=== PATIENT | female | born 1950 | race Caucasian/White ===

== ENCOUNTER 2018-04-30 08:57 | Outpatient (CLI) | payer MEDICARE, BC, SELFPAY | END 2018-04-30 08:58 | DX: Z53.8 Procedure and treatment not carried out for other reasons (principal) | CPT/HCPCS: 36415; 80053; 80061; 83721 ==

== ENCOUNTER 2018-05-01 02:55 | Outpatient (CLI) | payer MEDICARE, BC, SELFPAY ==
[2018-05-01 11:27] LABS: ALT 23 U/L (12-78); AST 24 U/L (15-37); Albumin 3.8 g/dL (3.4-5.0); Alkaline Phosphatase 94 U/L (46-116); Anion Gap 5.2 mmol/L (3-11); BUN 18 mg/dL (7-18); Bilirubin, Total 0.5 mg/dL (0.2-1.0); CO2 28.8 mmol/L (21.0-32.0); CREATININE 1.12 mg/dL (0.55-1.02); Chloride 108 mmol/L (98-107); Cholesterol 270 mg/dL (50-200); Estimated GFR 48.23 (mL/min/1.73m2); Glucose 89 mg/dL (70-100); HDL Cholesterol 109 mg/dL (40-60); LDL CHOLESTEROL 151 mg/dL (<100); Potassium 4.4 mmol/L (3.5-5.1); Sodium 142 mmol/L (136-145); Total Protein 6.4 g/dL (6.4-8.2); Triglyceride 74 mg/dL (30-150)
== END 2018-05-01 02:56 ==
DX: E78.2 Mixed hyperlipidemia (principal); E78.5 Hyperlipidemia, unspecified
CPT/HCPCS: 36415; 80053; 80061; 83721

== ENCOUNTER 2019-10-03 01:14 | Outpatient (CLI) | payer MEDICARE, BC, SELFPAY ==
--- NOTE | 2019-10-03 16:38 | DI.MAMMO_ITS ---
EXAM: MAMMO SCREENING CLINICAL HISTORY: screening Z12.39 TECHNIQUE: Mammograms were interpreted according to the usual protocol including computer analysis w [employer] CAD system, tomosynthesis and C-view imaging. FINDINGS: The breasts are heterogeneously dense. No dominant mass or clumped microcalcification is identified in either breast. Current examination is compared with previous examinations including June 2017 and there has been no gross interval change in appearance in comparison with the previous studies. IMPRESSION: No specific evidence of malignancy at this time. Routine screening examinations are suggested at year ly intervals due to the family history of breast carcinoma. Category 1. Breast density, category C. BI-RADS Cat 1 - Negative. Breast Density - Category C - Heterogeneously dense.
== END 2019-10-03 01:34 ==
PROVIDERS: Visit Provider Nurse Practitioner
DX: Z12.31 Encounter for screening mammogram for malignant neoplasm of breast (principal); Z80.3 Family history of malignant neoplasm of breast
CPT/HCPCS: 77063; 77067

== ENCOUNTER 2020-02-08 23:05 | Emergency (ER) | payer MEDICARE, BC, SELFPAY ==
[2020-02-08] VITALS (7 sets, daily range): BP systolic 112–126; BP diastolic 67–79; PULSE 75–97; RESP 14–19; TEMP 36.6; O2SAT 95–98
--- NOTE | 2020-02-08 23:11 | ED.GENADUL_ITS ---
Discharge Plan Disposition Patient Disposition: HOME Condition: Stable Discharge Details Chief Complaint: Chest Pain Clinical Impression: Chest pain Primary Care Provider: Charis Gould ED Provider: Samuel Rene Home Meds and New Rx's Prescriptions: Continued calcium carb and citrate-vitD3 1 EACH tablet extended release 1 ea PO DAILY RF: 0 bupropion HCl [Wellbutrin XL] 300 mg tablet extended release 24 hr 300 mg PO DAILY Qty: 90 RF: 4 lamotrigine 100 mg tablet 100 mg PO DAILY Qty: 90 RF: 4 Discharge Instructions Instructions: Chest Pain (ED) Additional Instructions: follow up with your primary care provider this week and discuss having a stress test. you should also discuss the lung nodule seen on your cat scan as you should have additional imaging in the future for follow up return to the emergency department if you have worsening pain, difficulty breathing or feel more ill Medical Decision Making 69 yo female with hx of anxiety, denies smoking history and otherwise unremarkable medical history comes in with cc of intermittent chest pain for over a day. Denies radiation of pain, diaphoresis, or notice of increase in pain with exertion. She denies fevers, chills, abdominal pain. She has no leg swelling, no calf pain, no hypoxia or tachycardia sodoubt PE. Though no pain radiatin to the back concern for possible dissection, will obtain CTA of thorax.Her heart score is 3, will obtain troponin, ecg unremarkable. labs unrenmarkable and ct shows no acute findings, does have lung nodule which I informed her of and advised her to discuss this with pcp for future imaging. Given over 3 hours of pain do not feel additional troponin indicated. Advised to f/u with pcp this week for possible stress testing and return precautions given Differential Diagnosis Differential Diagnosis: nstemi, esophageal spasm, dissection Medical Records Medical records reviewed: Yes I reviewed the patient's medical records. Imaging Data Radiologic Study: Attestation: I personally reviewed and interpreted this imaging study as follows: Imaging: CT Scan Radiologist's impression: IMPRESSION: 1. No evidence of aortic aneurysm or dissection. 2. No focal pulmonary consolidation. 7 mm nodule in the left oblique fissure likely represents an intrafissural lymph node. Follow-up guidelines of follows: For patients at low risk (minimal or absent history of smoking and of other known risk factors), recommend CT at 6-12 months, then consider CT at 18-24 months. For patients at high risk (history of smoking or of other known risk factors), recommend CT at 6-12 months, then CT at 18-24 months. (Carol et al., Fleischner Society, 2017) Lab Data Lab results reviewed: Yes I reviewed the patient's lab results. ECG Data Attestation: I personally reviewed and interpreted this ECG (s) as follows: Prior ECG tracings: available for review Interpretation: sinus rhythm, rate of 89, pr 152, no acute st t wave ischemic findings HPI General Mode of arrival: ambulatory . Date/Time Provider Initiated Documentation: 02/08/20 23:09 . Limitations to Documentation: no limitations . Information obtained by: patient . History of Present Illness 69 year old F presents to the emergency department with the chief complaint of chest pain, described as moderate, Patient reports no radiation. Patient started experiencing this day(s) (1) and it has been intermittent. No relieving factors improve symptom(s), No exacerbating factors reported . Patient did receive the following treatments prior to arrival, none Related Data Home Medications Medication Instructions Recorded Confirmed calcium carb and citrate-vitD3 1 ea PO DAILY 12/25/15 02/08/20 bupropion HCl 300 mg 24 hr tablet, 300 mg PO DAILY #90 tab 05/01/19 02/08/20 extended release lamotrigine 100 mg tablet 100 mg PO DAILY #90 tab 05/01/19 02/08/20 Previous Rx's Medication Instructions Recorded bupropion HCl 300 mg 24 hr tablet, 300 mg PO DAILY #90 tab 05/01/19 extended release lamotrigine 100 mg tablet 100 mg PO DAILY #90 tab 05/01/19 Allergies Allergy/AdvReac Type Severity Reaction Status Date / Time venlafaxine HCl AdvReac Intermediate hallucinati Verified 07/24/19 17:07 [From Effexor] ons General Stated Complaint: Chest Pain VIOLETA: 2 Review of Systems All systems reviewed & are unremarkable except as noted in HPI and below Constitutional Constitutional: Denies chills, Denies fever(s) and Denies weakness ENT Ears, Nose, Mouth, and Throat: Denies change in voice Cardiovascular Cardiovascular: Denies dyspnea Respiratory Respiratory: Denies cough and Denies dyspnea Gastrointestinal Gastrointestinal: Denies abdominal pain, Denies nausea and Denies vomiting Musculoskeletal Musculoskeletal: Denies joint swelling Neurologic Neurologic: Denies weakness PFSH Medical History (Updated 02/09/20 @ 00:23 by Samuel Rene MD) Anxiety and depression (Acute) Encounter for pessary maintenance (Acute) Skin lesion of scalp (Acute) Uterine polyp (Acute) s/p D&C. Uterine prolapse (Acute) 04/2019 51 mm short stem Gellhorn placed 07/2019. [facility] [place] [facility] [facility] referral. Surgery declined fenestrated cube pessary placed. 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 Maternal Grandfather Heart disease Paternal Grandfather No problems noted. Maternal Grandmother Arthritis Paternal Grandmother No problems noted. Maternal Aunt Osteoporosis Arthritis Son Asthma Daughter No problems noted. Social History (Updated 07/25/19 @ 10:27 by Jason Degroot) Smoking/Tobacco Use Status: Former Tobacco Use Second Hand Exposure: Yes Alcohol Intake: current Alcohol Intake frequency: 0-2 drinks per day Alcohol type: wine Counseling given: No Drug use: Never Caregiver/Support person: No Household members: spouse and other Details: Raghavendra. . Housing: house Communication Needs: None Do you need help understanding health information?: Never current occupation: retired Pets and animals: No Sexually active: Yes (infrequently) Do you think of yourself as: straight/heterosexual Current gender identity: female What is your relationship status?: How often do you talk on the phone with friends or family?: once per week How often do you get together with friends or relatives?: decline to answer How often do you attend alevism or orthodox services?: 1-3 times per year Do you belong to any clubs or organized social groups?: yes Panel score (0-1 are the most socially isolated patients): 2 What type of physical activity do you participate in: other Details: kayaking. Duration: 45-60 minutes/day Frequency: 1-2 times per week Jodie/Episcopal: Caodaism Special jodie needs: No Seatbelt use: always Helmet use: Yes Helmet use: always Drive intox or ride w/intox snaker tractor driver: No Do you feel safe at home: Yes Do you feel safe in your relationship?: Yes Additional Social history: 2 children History History 2 Para Hx # Term Pregnancies 2 Multiple births Hx # Pregnancies Ectopic pregnancies AB induced Hx Number of Living Children AB spontaneous Exam Const General: no acute distress Orientation: alert HENMT Head: normal to inspection Ears: external ears normal General nose exam: external nose normal Mouth: moist mucous membranes Eyes General: appearance normal, both eyes and all related structures Neck Neck: normal visual inspection Resp Effort & Inspection: normal respiratory effort and able to speak in complete sentences Cardio Rate: regular rate Skin General skin exam: no rashes or lesions noted Neuro General: patient alert and patient oriented x3 Extrem General: normal to inspection Psych Mental Status: mental status grossly normal
[2020-02-08 23:27] LABS: Abs Immature Grans 0.02 k/cumm (0.0-0.09); Absolute Basophil Count 0.05 k/cumm (0.0-0.2); Absolute Eosinophil Count 0.15 k/cumm (0.0-0.7); Absolute Lymphocyte Count 2.49 k/cumm (1.2-3.4); Absolute Neutrophil Count 3.43 k/cumm (1.2-6.7); Basophils % 0.7; Eosinophils % 2.2; HCT 40.2 % (36.0-46.0); HGB 13.7 g/dL (12.0-15.5); Immature Grans % 0.3 %; Lymphocytes % 36.4; Mean Corp. HGB Concentration 34.1 g/dL (32.0-36.0); Mean Corpuscular Hemoglobin 30.4 pg (27.0-33.0); Mean Corpuscular Volume 89.1 fL (80-95); Mean Platelet Volume 9.3 fL (8.0-11.0); Monocytes % 10.2; Neutrophils % 50.2; Platelet Count 386 x1000/uL (130-400); RBC 4.51 m/cumm (4.00-5.20); RBC Distribution Width 12.4 % (11.7-14.6); White Blood Cell Count 6.84 k/cumm (4.4-10.8)
--- NOTE | 2020-02-08 23:41 | DI.CT_ITS ---
EXAM: CT THORAX CTA CLINICAL HISTORY: chest pain, ?dissection. TECHNIQUE: Imaging Protocol: Axial CT angiography was performed with multi-slice acquisition and mu lti-planar and/or 3D reconstructions. CONTRAST MATERIAL: Intravenous: Omnipaque 350 Contrast volume:61 mL COMPARISON: CT UPPER ABD WITH CONTRAST (P) from 12/30/2017 FINDINGS: Pulmonary Arteries: The examination was not tailored for evaluation of the pulmonary arteries. Tracheobronchial tree: Patent where visualized. Mediastinum and Stacey: No dominant adenopathy or fluid collection. Pulmonary parenchyma: No consolidation is present. There is a 0.7 cm nodule along the left major fis sure likely reflecting a lymph node. No architectural distortion. Linear atelectasis is seen in the lung bases. Pleura: No effusion or pneumothorax. Heart: The heart is not dilated. No coronary artery calcifications are seen. No pericardial effusion. Aorta: Thoracic aorta non-dilated. There is no evidence of a thoracic aortic dissection. Upper abdomen: The renal pelves appear stable and likely reflect bilateral extrarenal pelves. Bones: No acute abnormality. Soft tissues: Unremarkable. IMPRESSION: 1. No evidence of thoracic aortic aneurysm or dissection. 2. 0.7 cm nodule along the left major fissure likely reflecting an intrapulmonary lymph node. For lo w risk patients or high risk patients CT scan in 6-12 months should be considered for follow-up. RADIATION DOSE DELIVERED: 431.52mGy.cm Total DLP DATA REPOSITORY: All CT scans at this facility are submitted to the National Radiology Data Registry (NRDR) Dose Index Registry (DIR) with the [employer] (ACR). RADIATION OPTIMIZATION: All CT scans at this facility use at least one of these dose optimization te chniques: automated exposure control; mA and/or kV adjustment per patient size (includes targeted exa ms where dose is matched to clinical indication); or iterative reconstruction.
[2020-02-08 23:44] LABS: PTT Activated 23.9 sec (21.0-31.4); Prothrombin Time 10.1 sec (9.3-11.0)
[2020-02-08 23:48] LABS: ALT 27 U/L (14-59); AST 25 U/L (15-37); Albumin 4.3 g/dL (3.4-5.0); Alkaline Phosphatase 97 U/L (46-116); Anion Gap 8.8 mmol/L (3-11); BUN 16 mg/dL (7-18); Bilirubin, Total 0.6 mg/dL (0.2-1.0); CO2 29.2 mmol/L (21.0-32.0); CREATININE 1.42 mg/dL (0.55-1.02); Calcium 9.2 mg/dL (8.5-10.1); Chloride 102 mmol/L (98-107); Estimated GFR 36.47 (mL/min/1.73m2); Glucose 105 mg/dL (74-106); Lipase 166 U/L (73-393); NT-proBNP 67 pg/mL (<300); Potassium 3.8 mmol/L (3.5-5.1); Sodium 140 mmol/L (136-145); Total Protein 7.1 g/dL (6.4-8.2); Troponin I < 0.05 ng/mL (<0.06)
[2020-02-08] MEDS: Normal Saline Flush 10 ML SYR IVP (23:55)
[2020-02-08] MEDS: Omnipaque 350 MG/ML 100 ML BTL IJ (23:56)
[2020-02-08] MEDS: Normal Saline - Diluent 50 ML VIAL IV (23:56)
[2020-02-09] VITALS: BP 105/71; PULSE 75; PULSE 76; RESP 18
[2020-02-09 00:01] VITALS: PULSE 79; RESP 14
[2020-02-09 00:10] VITALS: PULSE 78; RESP 13; O2SAT 94
--- NOTE | 2020-02-09 00:14 | DI.VRAD_ITS ---
PROCEDURE INFORMATION: Exam: CT Angiography Chest With Contrast Exam date and time: 02/08/2020 11:21 PM Age: 69 years old Clinical indication: Chest pain; Type not specified TECHNIQUE: Imaging protocol: Computed tomographic angiography of the chest with intravenous contrast. 3D rendering: MIP and/or 3D reconstructed images were created by the technologist. Radiation optimization: All CT scans at this facility use at least one of these dose optimization techniques: automated exposure control; mA and/or kV adjustment per patient size (includes targeted exams where dose is matched to clinical indication); or iterative reconstruction. Contrast material: [id number]; Contrast volume: 61 ml; Contrast route: IV 18G RAC; COMPARISON: No relevant prior studies available. FINDINGS: Aorta: Unremarkable. No aortic aneurysm. No aortic dissection. Pulmonary arteries: The study is not tailored to evaluate the pulmonary arteries. Lungs: A 7 mm nodule is noted along the left oblique fissure, likely an intrafissural lymph node. Linear atelectasis is noted in the right middle lobe. Pleural space: Unremarkable. No pneumothorax. No pleural effusion. Heart: Unremarkable. No significant cardiomegaly. No pericardial effusion. Lymph nodes: Unremarkable. No enlarged lymph nodes. Kidneys and ureters: The partially visualized bilateral renal collecting systems appear prominent, which could be secondary to extrarenal pelvises. Bones/joints: Unremarkable. No acute fracture. Soft tissues: Unremarkable. IMPRESSION: 1. No evidence of aortic aneurysm or dissection. 2. No focal pulmonary consolidation. 7 mm nodule in the left oblique fissure likely represents an intrafissural lymph node. Follow-up guidelines of follows: For patients at low risk (minimal or absent history of smoking and of other known risk factors), recommend CT at 6-12 months, then consider CT at 18-24 months. For patients at high risk (history of smoking or of other known risk factors), recommend CT at 6-12 months, then CT at 18-24 months. (Carol et al., Fleischner Society, 2017) Dictated and Authenticated by: Devora Kruger MD. Ordering:MIL Baker MD
== END 2020-02-09 00:33 | disposition home or self-care (01) ==
PROVIDERS: Emergency Provider Emergency Medicine
DX: R07.89 Other chest pain (principal); R91.1 Solitary pulmonary nodule
CPT/HCPCS: 36415; 71275; 80053; 83690; 93005; 99285; 83880; 84484; 85025; 85610; 85730; 93010; 99284; J3490

== ENCOUNTER 2020-02-19 00:06 | Outpatient (CLI) | payer MEDICARE, BC, SELFPAY ==
--- NOTE | 2020-02-19 08:00 | ETT_ITS ---
APPROVED REPORT Exam: Exercise Treadmill Patient Location: Out-Patient Room/Bed: Stress Nurse: Liz Lange RN BMI: 23.51 Baseline Rhythm: Sinus Rhythm Indications: Patient reports having intermittent midsternal chest pain associated with ???cold sweats ??? for the past year. Patient presented to the ED on 02/08/2020 when her ???gripping??? midsternal kan st pain (03/14) was the worst she had experienced. Medical History Medical History: Anxiety, Depression. Cardiac Medications: No cardiac medications. Allergies: Venlafaxine. Cardiac Risk Factors: FHX of CAD Previous Cardiac Procedures: None Pretest Chest Pain Characteristics: None Exercise History: Physically active Physical Disabilities: Left Hip/Leg Lung Sounds: Clear to auscultation Heart Sounds: Regular Stress Test Details Test: Exercise stress testing was performed using a Raghavendra protocol. Rest Stress HR Resting HR Supine: 81 bpm Max Heart Rate (APMHR): 149 bpm Resting HR Standin bpm Target HR (85% APMHR): 126 bpm Max HR Achieved: 135 bpm % of APMHR: 90 HR response to stress: Normal HR response to stress BP Resting BP Supine: 110/60 mmHg Resting BP Standin/64 mmHg Max BP: 148/72 mmHg BP response to stress: Normal blood pressure response to stress. ECG Resting ECG: Sinus Bradycardia Stress ECG: Sinus Tachycardia ST Change: Normal Arrhythmia: None Recovery ECG: Sinus Rhythm Recovery ST Change: Normal Recovery Arrhythmia: None Clinical Reason for Termination: Left groin/hip pain Stress Symptoms: None reported per patient. Exercise duration: 7 min32 sec Highest Stage Reached: Stage 3: 3.4 mph at 14% grade. Exercise capacity: 9.40 METs Functional Capacity: Above average capacity Stress ECG Conclusion 1. She exercised for 7 minutes and 30 seconds (9 METS). Rate-pressure product was 16,000. 2. Patient no symptoms suggestive of ischemia. 3. There is no evidence of ischemia on the ECG portion of the exam at this level of stress. 4. The Vaughn Score ( 7) estimates an annual cardiovascular mortality of 0% and a five year survival of 95%. Using the Vaughn Score there is a low probability of any angiographic coronary disease. Stress Test Summary STAGE Time (mins) Speed (mph) Grade (%) HR BP SYMPTOMS METS Supine 81 110/60 Standing 94 110/64 1 3 1.7 10 105 118/70 4.6 2 6 2.5 12 120 124/80 7 1 min recovery 112 148/72 3 min recovery 77 116/64 6 min recovery 76 106/60 9 min recovery 73 108/64
== END 2020-02-19 00:26 ==
DX: R07.89 Other chest pain (principal); F41.8 Other specified anxiety disorders; Z82.49 Family history of ischemic heart disease and other diseases of the circulatory system
CPT/HCPCS: 93016; 93018; 93017

== ENCOUNTER 2020-04-16 14:17 | Emergency (ER) | payer MEDICARE, BC, SELFPAY ==
[2020-04-16] VITALS (37 sets, daily range): BP systolic 106–126; BP diastolic 61–102; PULSE 63–80; RESP 12–26; TEMP 36.4–36.8; O2SAT 85–99
--- NOTE | 2020-04-16 14:15 | RT.EKG_ITS ---
APPROVED REPORT Exam: Resting ECG Patient Location: E HR:78 bpm ECG Measurements Heart Rate 78 AXIS HI 157 P 54 QRSd 77 QRS 42 QT 378 T 64 QTc 430 Conclusion Sinus. Less than 1mm ST depression in V3-6, II, III. No acute ST elevation.
--- NOTE | 2020-04-16 14:32 | ED.GENADUL_ITS ---
Discharge Plan Disposition Patient Disposition: HOME Condition: Improving Discharge Details Chief Complaint: Chest Pain Clinical Impression: Chest wall pain, Stress Primary Care Provider: Charis Gould ED Provider: Lara Fox Home Meds and New Rx's Prescriptions: New lidocaine [Lidoderm] 5 % adhesive patch,medicated 1 patch TP DAILY PRN (Reason: pain) Qty: 15 RF: 0 Continued estradiol [Estrace] 0.01 % (0.1 mg/gram) cream 1 gm VG QWEEK RF: 0 calcium carb and citrate-vitD3 1 EACH tablet extended release 1 ea PO DAILY RF: 0 bupropion HCl [Wellbutrin XL] 300 mg tablet extended release 24 hr 300 mg PO DAILY Qty: 90 RF: 4 lamotrigine 100 mg tablet 100 mg PO DAILY Qty: 90 RF: 4 nitroglycerin 0.4 mg tablet, sublingual 0.4 mg SL ONCE PRNRF: 0 Discharge Instructions Instructions: Chest Wall Pain (ED) Additional Instructions: Drink plenty of fluids and get plenty of rest. Alternate tylenol and motrin as needed and directed for pain. Use Lidoderm patch as needed and directed. Take the Ativan as needed and directed for sleep. Follow-up with your primary care doctor in 1 week. Return to the emergency department with any worsening or new concerning symptoms. Discharge Data Discharge Date/Time-TO BE ENTERED AT DEPARTURE: 04/16/20 18:55 Discharge Physician: Lara Fox Medical Decision Making 3918 -- 69-year-old female with a history of anxiety and depression presents for 2 episodes of left-sided chest pain since this morning. Minimal 1/10 chest pain at this time. No other associated symptoms. She admits to significant stress and sleep deprivation. She is active at home. EKG notes a rate of 78, sinus with questionable less than [address] depression in V3 V4. No acute ST elevation. She has tenderness to palpation just lateral to the inferior aspect of the sternum. No evidence of cellulitis or trauma. Differential diagnosis includes anxiety, chest wall strain, ACS, pneumonia. History and presentation not consistent with PE or dissection. She had a negative exercise stress test on 02/19/2020. Will obtain a cardiac work-up, CT chest and place Lidoderm patch and IV Tylenol, fluids and reassess. 1630 --labs and imaging reviewed and unremarkable. Patient reassessed and she feels much better. She is agreeable to stay for a second troponin and EKG. 1814 --repeat troponin negative. Repeat EKG notes resolution of ST depression with no acute ST-T wave ischemic changes. Discussed with patient at length regarding her symptoms. As she had a negative stress test 2 months ago, 2 episodes of atypical type chest pain which is reproducible, do not feel that this is an acute cardiac etiology at this time and patient is agreeable. We will send home with a few tabs of Ativan to help with initiating sleep. Advised to follow up with the primary care doctor for re-evaluation. Usual and customary return precautions given prior to discharge. Medical Records Medical records reviewed: Yes I reviewed the patient's medical records. Imaging Data Radiologic Study: Radiologist's impression: Addendum created by Too Kee MD on 04/16/2020 4:48:04 PM EDT Correction: The finding related to the left major fissure is benign and does NOT need to be followed. CT Angiography Chest With Contrast Exam date and time: 04/16/2020 3:48 PM Age: 69 years old Clinical indication: Type not specified; Patient HX: Chest pain, diaphoresis, R/O acute disease TECHNIQUE: Imaging protocol: Computed tomographic angiography of the chest with intravenous contrast. 3D rendering: MIP and/or 3D reconstructed images were created by the technologist. Radiation optimization: All CT scans at this facility use at least one of these dose optimization techniques: automated exposure control; mA and/or kV adjustment per patient size (includes targeted exams where dose is matched to clinical indication); or iterative reconstruction. Contrast material: OMNIPAQUE 350; Contrast volume: 100 ml; Contrast route: INTRAVENOUS (IV); COMPARISON: CT THORAX CTA 02/08/2020 11:29 PM FINDINGS: Pulmonary arteries: Normal. No pulmonary emboli. Diagnostic opacification. Aorta: Normal. Lungs: Chronic unchanged mild bilateral lower lobe peribronchial thickening. Pleural space: No pleural effusion. Heart: Normal heart. No pericardial effusion. Lymph nodes: No axillary, hilar or mediastinal adenopathy. Chronic unchanged 6 mm mid left major intra fissural nodule/lymph node. Bones/joints: Normal. Soft tissues: Unremarkable. IMPRESSION: No acute disease. Negative for pulmonary arterial embolism. The finding related to the left major fissure is benign in the not be followed. Lab Data Lab results reviewed: Yes I reviewed the patient's lab results. Labs: Laboratory Tests Range/Units 04/16/20 04/16/20 04/16/20 14:30 14:30 14:30 WBC (4.4-10.8) 10^3/uL 6.73 RBC (3.93-5.22) 10^6/uL 4.63 Hgb (11.2-15.7) g/dL 14.1 Hct (36.0-46.0) % 42.5 MCV (80-95) fL 91.8 MCH (27.0-33.0) pg 30.5 MCHC (32.0-36.0) % 33.2 RDW (11.7-14.6) % 11.9 Plt Count (130-400) 10^3/uL 328 MPV (8.0-11.0) fL 9.9 Immature Gran % 0.6 Neutrophils % 64.4 Lymphocytes % 24.5 Monocytes % 6.4 Eosinophils % 3.4 Basophils % 0.7 Absolute Neutrophils (1.2-6.7) 10^3/uL 4.33 Absolute Lymphocytes (1.2-3.4) 10^3/uL 1.65 Absolute Monocytes (0.1-0.8) 10^3/uL 0.43 Absolute Eosinophils (0.0-0.7) 10^3/uL 0.23 Absolute Basophils (0.0-0.2) 10^3/uL 0.05 PT (9.3-11.0) sec 10.1 INR (0.9-1.1) 1.0 APTT (21.0-31.4) sec 23.0 Sodium (136-145) mmol/L 141 Potassium (3.5-5.1) mmol/L 3.8 Chloride (98-107) mmol/L 104 Carbon Dioxide (21.0-32.0) mmol/L 28.0 Anion Gap (3-11) mmol/L 9.0 BUN (7-18) mg/dL 16 Creatinine (0.55-1.02) mg/dL 1.07 H Estimated GFR/1.73 m2 (mL/min/1.73m2) 50.55 Glucose (74-106) mg/dL 89 Calcium (8.5-10.1) mg/dL 9.3 Magnesium (1.8-2.4) mg/dL 1.9 Total Bilirubin (0.2-1.0) mg/dL 0.5 AST (15-37) U/L 17 ALT (14-59) U/L 23 Alkaline Phosphatase (46-116) U/L 92 Troponin I (<0.06) ng/mL < 0.05 Total Protein (6.4-8.2) g/dL 7.1 Albumin (3.4-5.0) g/dL 3.9 Range/Units 04/16/20 17:30 WBC (4.4-10.8) 10^3/uL RBC (3.93-5.22) 10^6/uL Hgb (11.2-15.7) g/dL Hct (36.0-46.0) % MCV (80-95) fL MCH (27.0-33.0) pg MCHC (32.0-36.0) % RDW (11.7-14.6) % Plt Count (130-400) 10^3/uL MPV (8.0-11.0) fL Immature Gran % Neutrophils % Lymphocytes % Monocytes % Eosinophils % Basophils % Absolute Neutrophils (1.2-6.7) 10^3/uL Absolute Lymphocytes (1.2-3.4) 10^3/uL Absolute Monocytes (0.1-0.8) 10^3/uL Absolute Eosinophils (0.0-0.7) 10^3/uL Absolute Basophils (0.0-0.2) 10^3/uL PT (9.3-11.0) sec INR (0.9-1.1) APTT (21.0-31.4) sec Sodium (136-145) mmol/L Potassium (3.5-5.1) mmol/L Chloride (98-107) mmol/L Carbon Dioxide (21.0-32.0) mmol/L Anion Gap (3-11) mmol/L BUN (7-18) mg/dL Creatinine (0.55-1.02) mg/dL Estimated GFR/1.73 m2 (mL/min/1.73m2) Glucose (74-106) mg/dL Calcium (8.5-10.1) mg/dL Magnesium (1.8-2.4) mg/dL Total Bilirubin (0.2-1.0) mg/dL AST (15-37) U/L ALT (14-59) U/L Alkaline Phosphatase (46-116) U/L Troponin I (<0.06) ng/mL < 0.05 Total Protein (6.4-8.2) g/dL Albumin (3.4-5.0) g/dL ECG Data Attestation: I personally reviewed and interpreted this ECG (s) as follows: Interpretation: #1 --Rate of 78, sinus, less than [address] depression in V3 and V4. No acute ST elevation. T wave inversion in aVL. [place] 157. QRS 77. QTc 430. #2 --Rate of 69, sinus. No acute ST elevation or depression. [place] 182. QRS 77. QTc 448. HPI General Mode of arrival: ambulatory . Date/Time Provider Initiated Documentation: 04/16/20 14:26 . Limitations to Documentation: no limitations . Information obtained by: patient . HPI Narrative: Patient is a 69-year-old female with a history of anxiety and depression who presents for 2 episodes of chest pain since exam this morning. Patient states the first episode occurred when she was laying in bed and it awoke her from sleep. She describes it as just lateral to the lower aspect of her sternum and felt gripping in nature. She states she was given nitro by her primary care doctor for previous chest pain from 2 months ago and was advised to take with any episodes of chest pain. She states she took the nitro and did not have relief of pain. She states she went back to bed for a nap and awoke at 11 AM and was making her bed when she noticed return of this chest pain. She states the chest pain lasted a few seconds and then resolved. She states she had some sweating with both episodes of the chest pain today. She denies any fever, cough, shortness of breath, dizziness, nausea or vomiting with these episodes. She admits to some mild discomfort in this area at this time which is currently 1/10. She states it was 7/10 at its worst. She denies any radiation of pain, aggravating or alleviating factors. She does admit to a significant amount of stress in her life right now with family issues. She also states that she has significant anxiety and depression which is managed with her medication. She states she has not been sleeping much lately due to her stressful family issues. She states she also has a home in [place] which she cannot go to due to the travel restrictions and this is causing her stress as there is work to be done on it this month. She admits to headache since nitro this morning. Of note, patient was seen here 2 months ago for chest pain and was discharged home and followed up with her primary care doctor and had an outpatient stress test which was negative. Related Data Home Medications Medication Instructions Recorded Confirmed calcium carb and citrate-vitD3 1 ea PO DAILY 12/25/15 04/16/20 bupropion HCl 300 mg 24 hr tablet, 300 mg PO DAILY #90 tab 05/01/19 04/16/20 extended release lamotrigine 100 mg tablet 100 mg PO DAILY #90 tab 05/01/19 04/16/20 estradiol 1 gm VG QWEEK 03/31/20 04/16/20 lidocaine [Lidoderm] 1 patch TP DAILY PRN #15 each 04/16/20 nitroglycerin 0.4 mg SL ONCE PRN 04/16/20 04/16/20 Previous Rx's Medication Instructions Recorded bupropion HCl 300 mg 24 hr tablet, 300 mg PO DAILY #90 tab 05/01/19 extended release lamotrigine 100 mg tablet 100 mg PO DAILY #90 tab 05/01/19 lidocaine [Lidoderm] 1 patch TP DAILY PRN #15 each 04/16/20 Allergies Allergy/AdvReac Type Severity Reaction Status Date / Time venlafaxine HCl AdvReac Intermediate hallucinati Verified 03/31/20 10:29 [From Effexor] ons General VIOLETA: 2 Review of Systems All systems reviewed & are unremarkable except as noted in HPI and below Constitutional Constitutional: Reports as per HPI, Denies chills and Denies fever(s) Eyes Eyes: Denies blurry vision ENT Ears, Nose, Mouth, and Throat: Denies dizziness, Denies sore throat and Denies throat swelling Cardiovascular Cardiovascular: Reports chest pain and Denies dyspnea Respiratory Respiratory: Denies cough and Denies dyspnea Gastrointestinal Gastrointestinal: Denies abdominal pain, Denies diarrhea and Denies vomiting Genitourinary Genitourinary: Denies hematuria and Denies dysuria Musculoskeletal Musculoskeletal: Denies back pain and Denies numbness Integumentary/Breasts Skin/Breast: Denies lesions and Denies rash Neurologic Neurologic: Denies dizziness, Denies localized weakness and Denies numbness Allergic/Immunologic Allergic/Immunologic: Denies throat swelling [facility] Medical History (Updated 04/16/20 @ 18:38 by Lara Fox DO) Angina at rest (Acute) Anxiety and depression (Acute) Encounter for pessary maintenance (Acute) Lung nodule seen on imaging study (Acute) Incidental finding during thoracic CT for assessment of CP on 02/08/20: 0.7 cm nodule along the left major fissure likely reflecting an intrapulmonary lymph node. For low risk patients or high risk patients CT scan in 6-12 months should be considered for follow-up. Skin lesion of scalp (Acute) Uterine polyp (Acute) s/p D&C. Uterine prolapse (Acute) 04/2019 51 mm short stem Gellhorn placed 07/2019. [facility] [facility] referral. Surgery declined fenestrated cube pessary placed. Surgical History Appendectomy (~2006) S/P rotator cuff repair (Acute) Total replacement of hip (03/24/16) Left Family History Mother Osteoporosis Arthritis Depression Mental disorder depression Sister Essential hypertension Osteoporosis Arthritis Mental disorder schizophrenia Maternal Uncle Mental disorder bipolar disorder Father No problems noted. Maternal Grandfather Heart disease Paternal Grandfather No problems noted. Maternal Grandmother Arthritis Paternal Grandmother No problems noted. Maternal Aunt Osteoporosis Arthritis Son Asthma Daughter No problems noted. Social History Smoking/Tobacco Use Status: Former Tobacco Use Second Hand Exposure: Yes Alcohol Intake: current Alcohol Intake frequency: 0-2 drinks per day Alcohol type: wine Counseling given: No Drug use: Never Caregiver/Support person: No Household members: spouse and other Details: Raghavendra. . Housing: house Communication Needs: None Do you need help understanding health information?: Never current occupation: retired Pets and animals: No Sexually active: Yes (infrequently) Do you think of yourself as: straight/heterosexual Current gender identity: female What is your relationship status?: How often do you talk on the phone with friends or family?: once per week How often do you get together with friends or relatives?: decline to answer How often do you attend confucianism or yarsanism services?: 1-3 times per year Do you belong to any clubs or organized social groups?: yes Panel score (0-1 are the most socially isolated patients): 2 What type of physical activity do you participate in: other Details: kayaking. Duration: 45-60 minutes/day Frequency: 1-2 times per week Jodie/Adventist: [employer] Special jodie needs: No Seatbelt use: always Helmet use: Yes Helmet use: always Drive intox or ride w/intox jukebox route driver: No Do you feel safe at home: Yes Do you feel safe in your relationship?: Yes Additional Social history: 2 children History History 2 Para Hx # Term Pregnancies 2 Multiple births Hx # Pregnancies Ectopic pregnancies AB induced Hx Number of Living Children AB spontaneous Exam Const General: cooperative, healthy appearing and no acute distress HENMT Head: normal to inspection Face and sinus: normal facial exam Eyes General: appearance normal, both eyes and all related structures EOM: EOM intact bilaterally Neck Neck: normal visual inspection and No submandibular swelling Lymphatic: no lymphadenopathy noted Chest Chest: normal inspection of the chest and tenderness Chest/axillae images: 2 1. Localized area of tenderness to palpation to left medial inferior breast just lateral to sternum. No step-off, crepitus, erythema, edema or ecchymosis. Breast normal to inspection. Resp Effort & Inspection: normal respiratory effort and able to speak in complete sentences Auscultation: clear to auscultation bilaterally Cardio Rate: regular rate Rhythm: regular rhythm GI Inspection: normal to inspection Palpation: soft, not firm, not rigid and nontender Auscultation: normal bowel sounds Back/Spine/Pelvis Thoracic/Lumbar Spine: thoracic and lumbar spine normal to inspection Skin General skin exam: no rashes or lesions noted Neuro General: patient alert, patient awake, patient oriented x3, moves all extremities, no meningeal signs and no focal motor deficits Cognition: normal cognition Speech: speech normal Motor: muscle tone normal throughout Sensory Exam: no sensory deficits noted Extrem General: normal to inspection, full ROM, capillary refill normal, no calf tenderness bilaterally and no edema Psych Appearance: grossly normal Mental Status: mental status grossly normal Speech and Movement: speech and movement normal Affect: normal affect
[2020-04-16 14:53] LABS: Abs Immature Grans 0.04 10^3/uL (0.0-0.06); Absolute Basophil Count 0.05 10^3/uL (0.0-0.2); Absolute Eosinophil Count 0.23 10^3/uL (0.0-0.7); Absolute Lymphocyte Count 1.65 10^3/uL (1.2-3.4); Absolute Monocyte Count 0.43 10^3/uL (0.1-0.8); Absolute Neutrophil Count 4.33 10^3/uL (1.2-6.7); Basophils % 0.7; Eosinophils % 3.4; HCT 42.5 % (36.0-46.0); HGB 14.1 g/dL (11.2-15.7); Immature Grans % 0.6; Lymphocytes % 24.5; MCH 30.5 pg (27.0-33.0); MCHC 33.2 % (32.0-36.0); MCV 91.8 fL (80-95); MPV 9.9 fL (8.0-11.0); Monocytes % 6.4; Neutrophils % 64.4; Nucleated RBC 0 %; Platelet Count 328 10^3/uL (130-400); RBC 4.63 10^6/uL (3.93-5.22); RDW 11.9 % (11.7-14.6); RDW-SD 39.9 fL; WBC 6.73 10^3/uL (4.4-10.8)
[2020-04-16 15:05] LABS: Prothrombin Time 10.1 sec (9.3-11.0)
[2020-04-16 15:09] LABS: ALT 23 U/L (14-59); AST 17 U/L (15-37); Albumin 3.9 g/dL (3.4-5.0); Alkaline Phosphatase 92 U/L (46-116); BUN 16 mg/dL (7-18); Bilirubin, Total 0.5 mg/dL (0.2-1.0); CREATININE 1.07 mg/dL (0.55-1.02); Calcium 9.3 mg/dL (8.5-10.1); Chloride 104 mmol/L (98-107); Estimated GFR 50.55 (mL/min/1.73m2); Glucose 89 mg/dL (74-106); Magnesium 1.9 mg/dL (1.8-2.4); Potassium 3.8 mmol/L (3.5-5.1); Sodium 141 mmol/L (136-145); Total Protein 7.1 g/dL (6.4-8.2)
[2020-04-16 15:10] LABS: Troponin I < 0.05 ng/mL (<0.06)
--- NOTE | 2020-04-16 15:45 | DI.CT_ITS ---
EXAM: CT CHEST PE CTA CLINICAL HISTORY: chest pain, diaphoresis, r/o acute disease. TECHNIQUE: Imaging Protocol: Axial CT angiography was performed with multi-slice acquisition and mu lti-planar and/or 3D reconstructions. CONTRAST MATERIAL: Intravenous: Omnipaque 350 Contrast volume:100 mL COMPARISON: CT CT THORAX CTA from 02/08/2020 FINDINGS: Pulmonary Arteries: No evidence of filling defect to suggest pulmonary emboli. Tracheobronchial tree: Patent where visualized. Mediastinum and Stacey: No dominant adenopathy or fluid collection. Pulmonary parenchyma: No consolidation or dominant measurable mass. No architectural distortion. Depe ndent atelectasis. There is a stable 6 mm nodule along the left major fissure most consistent with a n lymph node. Pleura: No effusion or pneumothorax. Heart: The heart is not dilated. No coronary artery calcifications are seen. No pericardial effusion. Aorta: Thoracic aorta non-dilated. Upper abdomen: Unremarkable. Bones: Normal. Soft tissues: Unremarkable. IMPRESSION: No evidence of pulmonary embolism, thoracic aortic dissection or aneurysm. No acute pulmonary process. RADIATION DOSE DELIVERED: 281.16mGy.cm Total DLP DATA REPOSITORY: All CT scans at this facility are submitted to the National Radiology Data Registry (NRDR) Dose Index Registry (DIR) with the [employer] (ACR). RADIATION OPTIMIZATION: All CT scans at this facility use at least one of these dose optimization te chniques: automated exposure control; mA and/or kV adjustment per patient size (includes targeted exa ms where dose is matched to clinical indication); or iterative reconstruction.
[2020-04-16] MEDS: Normal Saline 1,000 ML 1000 ML IV (15:55)
[2020-04-16] MEDS: ACETAMINOPHEN 1,000 MG/100 ML BTL 400 MG IVPB (15:56)
[2020-04-16] MEDS: Lidocaine 5% Patch 1 PATCH TP (15:57)
[2020-04-16] MEDS: Normal Saline - Diluent 50 ML VIAL IV (16:09)
[2020-04-16] MEDS: Omnipaque 350 MG/ML 100 ML BTL IJ (16:10)
--- NOTE | 2020-04-16 16:15 | RT.EKG_ITS ---
APPROVED REPORT Exam: Resting ECG Patient Location: E HR:69 bpm ECG Measurements Heart Rate 69 AXIS NM 182 P 60 QRSd 77 QRS 22 QT 416 T 60 QTc 448 Conclusion Sinus. No acute ST elevation or depression.
--- NOTE | 2020-04-16 16:46 | DI.VRAD_ITS ---
Addendum created by Too Kee MD on 04/16/2020 4:48:04 PM EDT Correction: The finding related to the left major fissure is benign and does NOT need to be followed. Initial report created on 04/16/2020 4:46:44 PM EDT PROCEDURE INFORMATION: Exam: CT Angiography Chest With Contrast Exam date and time: 04/16/2020 3:48 PM Age: 69 years old Clinical indication: Type not specified; Patient HX: Chest pain, diaphoresis, R/O acute disease TECHNIQUE: Imaging protocol: Computed tomographic angiography of the chest with intravenous contrast. 3D rendering: MIP and/or 3D reconstructed images were created by the technologist. Radiation optimization: All CT scans at this facility use at least one of these dose optimization techniques: automated exposure control; mA and/or kV adjustment per patient size (includes targeted exams where dose is matched to clinical indication); or iterative reconstruction. Contrast material: OMNIPAQUE 350; Contrast volume: 100 ml; Contrast route: INTRAVENOUS (IV); COMPARISON: CT THORAX CTA 02/08/2020 11:29 PM FINDINGS: Pulmonary arteries: Normal. No pulmonary emboli. Diagnostic opacification. Aorta: Normal. Lungs: Chronic unchanged mild bilateral lower lobe peribronchial thickening. Pleural space: No pleural effusion. Heart: Normal heart. No pericardial effusion. Lymph nodes: No axillary, hilar or mediastinal adenopathy. Chronic unchanged 6 mm mid left major intra fissural nodule/lymph node. Bones/joints: Normal. Soft tissues: Unremarkable. IMPRESSION: No acute disease. Negative for pulmonary arterial embolism. The finding related to the left major fissure is benign in the not be followed. Dictated and Authenticated by: Too Kee MD. Ordering:TRISTEN Bermudez MD
[2020-04-16 17:58] LABS: Troponin I < 0.05 ng/mL (<0.06)
[2020-04-16] MEDS: LORazepam 0.5 MG TAB 1.5 MG PO (18:48)
== END 2020-04-16 18:55 | disposition home or self-care (01) ==
PROVIDERS: Emergency Provider Physician Assistant
DX: R07.81 Pleurodynia (principal); F43.9 Reaction to severe stress, unspecified; F41.8 Other specified anxiety disorders
CPT/HCPCS: 36415; 71275; 80053; 93005; 96361; 96365; 99285; 83735; 84484; 85025; 85610; 85730; 93010; J0131; J3490

== ENCOUNTER 2020-07-14 02:13 | Outpatient (CLI) | payer MEDICARE, BC, SELFPAY ==
[2020-07-14 12:54] LABS: ALT 20 U/L (14-59); AST 18 U/L (15-37); Albumin 3.8 g/dL (3.4-5.0); Alkaline Phosphatase 89 U/L (46-116); Anion Gap 7.8 mmol/L (3-11); BUN 17 mg/dL (7-18); Bilirubin, Total 0.5 mg/dL (0.2-1.0); CO2 29.2 mmol/L (21.0-32.0); CREATININE 1.21 mg/dL (0.55-1.02); Calcium 8.8 mg/dL (8.5-10.1); Calculated LDL 157 mg/dL (<100); Chloride 105 mmol/L (98-107); Cholesterol 270 mg/dL (<200); Estimated GFR 43.86 (mL/min/1.73m2); Glucose 78 mg/dL (74-106); HDL Cholesterol 103 mg/dL (40-60); Potassium 4.3 mmol/L (3.5-5.1); Sodium 142 mmol/L (136-145); Total Protein 6.3 g/dL (6.4-8.2); Triglyceride 52 mg/dL (<150)
== END 2020-07-14 02:33 ==
DX: I10 Essential (primary) hypertension (principal); E03.9 Hypothyroidism, unspecified; N13.30 Unspecified hydronephrosis; F32.9 Major depressive disorder, single episode, unspecified; F41.9 Anxiety disorder, unspecified
CPT/HCPCS: 36415; 80053; 80061

== ENCOUNTER 2020-09-05 14:33 | Emergency (ER) | payer MEDICARE, BC, SELFPAY ==
[2020-09-05 14:36] VITALS: BP 108/60; PULSE 68; RESP 16; TEMP 36.8; O2SAT 97
--- NOTE | 2020-09-05 14:45 | DI.RAD_ITS ---
EXAM: XR ELBOW RT COMPLETE CLINICAL HISTORY: pain, swelling, trauma TECHNIQUE: COMPARISON: No exams were available for comparison FINDINGS: Three views were obtained. There is a fracture of the olecranon with moderate displacement. No yola tional fracture seen involving the bones of the elbow. There is an elbow joint effusion or hemarthro sis. IMPRESSION: RADIATION DOSE DELIVERED: Total DLP
[2020-09-05] MEDS: HYDROmorphone 2 MG/ML VIAL 1 MG IM (15:02)
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
--- NOTE | 2020-09-05 16:01 | DI.VRAD_ITS ---
PROCEDURE INFORMATION: Exam: XR Right Elbow Exam date and time: 09/05/2020 3:21 PM Age: 70 years old Clinical indication: Pain; Elbow; Right TECHNIQUE: Imaging protocol: XR Right elbow. Views: 3 or more views. COMPARISON: No relevant prior studies available. FINDINGS: Bones/joints: Displaced fracture of the olecranon process of the ulna. No radial head fracture or osteochondral defect. Mild background pattern of osteopenia and limited degenerative change. Soft tissues: Distension of the olecranon bursa with overlying soft tissue swelling at the level of the fracture. IMPRESSION: Proximal ulnar fracture. Dictated and Authenticated by: Zhen Paredes MD. Ordering:MATTIE Bunn MD
[2020-09-05] MEDS: oxyCODONE 5 MG TAB PO (16:42)
[2020-09-05 16:44] VITALS: BP 101/74; PULSE 67; RESP 18; TEMP 36.3; O2SAT 96
[2020-09-07 19:55] LABS: COVID-19 RT-PCR UVMMC Result Negative (Negative)
--- NOTE | 2020-09-09 08:22 | NUR.NOTE ---
Nursing Note: 0824--Pt scheduled for outpatient surgery today---DSU notified of result.
--- NOTE | 2020-09-09 10:38 | NUR.NOTE ---
Nursing Note: 1040--Jennie returned call and was informed of Negative Covid result.
== END 2020-09-05 16:59 | disposition home or self-care (01) ==
PROVIDERS: Emergency Provider Student in an Organized Health Care Education/Training Program
DX: S52.021A Displaced fracture of olecranon process without intraarticular extension of right ulna, initial encounter for closed fracture (principal); W00.0XXA Fall on same level due to ice and snow, initial encounter; R20.2 Paresthesia of skin; M25.551 Pain in right hip; Z03.818 Encounter for observation for suspected exposure to other biological agents ruled out
CPT/HCPCS: 96372; 99284; U0003; 73080

== ENCOUNTER 2020-09-09 11:02 | Day surgery (SDC) | payer MEDICARE, BC, SELFPAY ==
[2020-09-09] VITALS (9 sets, daily range): BP systolic 80–99; BP diastolic 51–65; PULSE 64–78; RESP 11–20; TEMP 36–36.6; O2SAT 91–100
[2020-09-09] MEDS: Lactated Ringers 1,000 ML 80 ML IV ×2 (12:15→16:32)
--- NOTE | 2020-09-09 13:15 | DI.RAD_ITS ---
EXAM: XR ELBOW RT LIMITED CLINICAL HISTORY: right olecranaon fracture TECHNIQUE: 2D and realtime digital imaging was performed. CONTRAST MATERIAL: Refer to procedure report. COMPARISON: CR,XR XR ELBOW RT COMPLETE from 09/05/2020 FINDINGS: Fluoroscopy was provided for Dr. Solano during the performance of a open reduction and internal fi xation of the olecranon fracture. Please refer to the procedure report for complete details. Fluoro time: 16.3 seconds IMPRESSION: RADIATION DOSE DELIVERED:
[2020-09-09] MEDS: ceFAZolin 2 GM/50 ML BAG IVPB (13:51)
[2020-09-09] MEDS: Bupivacaine 0.5% Pres-Free 30 ML VIAL (14:26)
[2020-09-09] MEDS: EPINEPHrine 1 MG/ML AMP pres-free (14:26)
--- NOTE | 2020-09-09 15:46 | ROE_ITS ---
Date of service: 09/09/20 Time of Service: 15:47 Operative Note Operative Note DATE OF PROCEDURE: 09/09/20 PRE-OP DIAGNOSIS: Right olecranon fracture POST-OP DIAGNOSIS: same PROCEDURE: Intramedullary Screw Fixation of Right olecranon fracture with Tension Band SURGEON: Tano Solano [employer] AND SHANK DEPARTMENT SUPERVISOR: Glendy Dill ANESTHESIA: GETA ESTIMATED BLOOD LOSS: 25 TOURNIQUET TIME: 0 COMPLICATIONS: None Patient was transported to: PACU Patient's condition: stable Implants: Synthes 7.3mm cannulated screw Indications: Mony is a 70-year-old who fell onto her left arm. Direct blow cause a displaced olecranon fracture. I discussed case with her over the phone after she presented to the emergency department with the confirmed diagnosis. Given the displacement of the fracture I did recommend fixation. She was concerned about the prominence of hardware and I did offer intramedullary screw fixation of the fracture pattern was amenable to this. I would also not hesitate to use a plate fixation of necessary. I reviewed the risk of the procedure to include bleeding, infection, pain, stiffness, damage to nerves and vessels, damage to muscle and tendons, malunion, nonunion, hardware prominence, hardware failure, need for repeat procedures. Findings: There is a primary transverse fracture of the proximal right ulna. There is minimal comminution. I was able to easily reduce the fracture fragment, secured with K wires, and finally fix with a 7.3 mm cannulated screw into the ulna with a PermaTape tape tension band. Procedure Description: Mony was greeted in the preoperative holding area. Her identity was confirmed the correct side was identified and marked. The history and physical was performed. The consent was reviewed the patient and signed. Mony was then taken back to the operating room and placed in the supine position on the operating room table for administration of anesthesia. After the general anesthetic was administered she was placed onto the left lateral decubitus position. An axillary roll was placed. Pillows were placed underneath the down leg and between the right and left leg. The left arm was placed onto a arm board and the right arm was draped over a bone foam upper extremity payne. She was made sure to be secured and well-padded at all bony prominences. Airway was secure. Prophylactic anabiotic's in the form of cefazolin were then adminis tered. A timeout was performed for safe surgery. Right arm was prepped with ChloraPrep and draped in a standard fashion. No tourniquet was applied nor used. A slightly curved incision was made along the tip of the olecranon. This is extended both proximally distally just by 2 cm. The skin was incised sharply down through the olecranon bursa where significant mount of hematoma was then evacuated. This excision was then extended slightly distally to expose the fracture site. There was a defect of the fascia of the proximal ulna in this location. This fascial surface was elevated at the level of the fracture for fracture identification it was left otherwise attached. The fracture piece proximal and was very mobile and this was mobilized to get visualization of the intra-articular space. There is no loose bodies no bony debris appreciated and the articular side of the fracture appeared to be without comminution. There is a small amount of comminution seen over the lateral aspect of the proximal ulna but otherwise it was a primary to part olecranon fracture with a small proximal piece. I was able to close reduce this with a clamp and then secured that with a K wire. With this in position I use an x-ray to make sure it appeared to be of sound reduction especially looking at the articular surface and the joint surface. Given the small size of this piece and the patient desire to not have a plate over the subcutaneous ulna, I attempted intramedullary screw fixation. The guidewire from the 7.3 mm cannulated screw system was then advanced through the tip of the olecranon into the ulna. I was able to angle this such that it was able to travel down the entire length of the ulna. Her inner diameter of the ulna was actually quite large, larger than I was expecting. I drilled the proximal portion through the olecranon and then tapped the path of the screw. Using the tap to determine the correct length, I went until is able to get resistance with the tap. Once I had good resistance such that it was starting to turn the arm by tapping I then marked this location on the tap and removed the tap. This indicated quite a large screw at 130 mm. This was longer than I was anticipating a place but I also knew that the fixation would be better in this location of the ulna so proceeded with a 130 mm screw with a washer. As the screws being inserted through the proximal portion there was some rotation of the fragment which was corrected once the screw threads entered into the ulna past the fracture site. The reduction was maintained. The screw continue to be advanced until the washer was just off of the triceps surface. A small incision was made within the triceps longitudinally to allow the washer to slide underneath the triceps insertion. However, prior to proceeding with this I placed a permanent tape suture around the screw and under the washer. This would be later used to make a tension band type construct. The screw was then fully advanced with excellent purchase of bone. This did compress the fracture site a slight amount over that dorsal surface. However, x-ray showed that the washer was against the proximal ulna piece and there was no significant step-off at the articular surface. As the screw was being seated I made sure to place the washer and screw head is under the triceps as possible. Screws once again turned until there was excellent bite. I think completed the tension band construct. A 2.0 mm drill was used to place a hole over the dorsal surface of the ulna. Using a suture passer I brought the limbs of the permanent tape through the hole in opposing directions creating a crossing pattern and then tying this over the top. The elbow was taken through range of motion and showed no gapping at the fracture site. The wound was injected with 0.25% bupivacaine with epinephrine. This was performed in the soft tissues as well as in the periosteal tissues around the fracture site. A #1 Vicryl was utilized to close the split of the triceps. I also utilized this Vicryl to reapproximate some the fascia over the dorsal ulna which was elevated for fracture reduction. The deeper tissues were then reapproximated with a 2-0 Vicryl. The skin was closed with a 4-0 nylon. The wound was dressed with Xeroform, 4 x 4, ABD, Kerlix and Preet wrap. No splint was applied but she was placed into a sling. She was then returned to a supine position on the operating room table. There were no noted complications. She was awakened from anesthesia and taken to the PACU in stable condition.
--- NOTE | 2020-09-09 15:47 | PDOC.DSDIS_ITS ---
Discharge Plan Disposition Patient Disposition: HOME Condition: Good Discharge Details Reason For Visit: ORIF right olejanisanon Attending Provider: Tano Solano Primary Care Provider: Charis Gould Home Meds and New Rx's Prescriptions: New acetaminophen [Tylenol Extra Strength] 500 mg tablet 500 mg PO Q6H PRNQty: 90 RF: 0 ibuprofen 600 mg tablet 600 mg PO TID Qty: 90 RF: 0 Continued bupropion HCl [Wellbutrin XL] 300 mg tablet extended release 24 hr 300 mg PO DAILY Qty: 90 RF: 4 lamotrigine 100 mg tablet 100 mg PO DAILY Qty: 90 RF: 4 estradiol [Estrace] 0.01 % (0.1 mg/gram) cream 1 applic VG QWEEK Qty: 42.5 RF: 4 calcium carb and citrate-vitD3 1 EACH tablet extended release 1 ea PO DAILY RF: 0 nitroglycerin 0.4 mg tablet, sublingual 0.4 mg SL ONCE PRNRF: 0 oxycodone 5 mg tablet 5 mg PO BID PRN (Reason: severe pain) Qty: 16 RF: 0 No Action ibuprofen 200 mg Tablet 200 mg PO Q6H PRNRF: 0 Tylenol Cold Max Night 6.25-5-10-325 mg/15 mL Liquid PO RF: 0 Discharge Instructions Additional Instructions: Activity: You should stay in the sling for the first 2 weeks. You may come out of the sling for gentle motion and hygiene but should largely remain in the sling to allow the incision site to heal. Gentle motion of the shoulder, elbow, hand, wrist, and fingers is okay and encouraged after the first few days, but no repetitive activities nor lifting. You may apply ice. Medications: - You should take Tylenol and Ibuprofen around the clock. - You were previously prescribed Oxyocodone for breakthrough pain. Dressings: - The initial surgical dressing should stay in place for 3 days. It may then be removed and kept clean and dry. You should cover with a light gauze dressing. It is okay to leave in place for up to one week. - You may shower after 3 days and get the wound wet. Follow-up: 10 days Referrals: Tano Solano MD [ [facility] ST[facility]FF [facility]YSIC[facility]] - Equipment/Supplies: Sling Activity:: Activity as Tolerated Remove Dressings/Wound Care:: 72 hours Shower/Bathe:: 72 hours Diet:: As Tolerated Discharge Orders Discharge Orders: Discharge Order (Routine); Ordered 09/09/20 Ordered By: Glendy Dill DS: Diagnosis Discharge Diagnosis (1) Closed fracture of right olecranon process: Status: Acute
[2020-09-09] MEDS: fentaNYL 100 MCG/2 ML VIAL IVP ×2 (16:19→16:31)
[2020-09-09] MEDS: Acetaminophen 325 MG TAB 650 MG PO (17:16)
== END 2020-09-09 18:00 | disposition home or self-care (01) ==
LOC: SUR 11:02
PROVIDERS: Visit Provider Student in an Organized Health Care Education/Training Program
PROC: (CPT 24685; principal; 2020-09-09 13:00)
DX: S52.021A Displaced fracture of olecranon process without intraarticular extension of right ulna, initial encounter for closed fracture (principal); W19.XXXA Unspecified fall, initial encounter
CPT/HCPCS: 24685; C1713; L3670; 73070; J0171; J0690; J1100; J2001; J2370; J2405; J2704; J3010

== ENCOUNTER 2020-09-22 14:14 | Outpatient (CLI) | payer MEDICARE, BC, SELFPAY ==
--- NOTE | 2020-09-22 13:45 | DI.RAD_ITS ---
EXAM: XR ELBOW RT COMPLETE CLINICAL HISTORY: S/P ORIF R elbow. TECHNIQUE: 2D digital imaging was performed. COMPARISON: CR,XR XR ELBOW RT COMPLETE from 09/05/2020 XR ELBOW RT LIMITED from 09/09/2020 FINDINGS: BONES: There are stable post operative changes present. No new fracture or dislocation. JOINTS: The joint spaces are well maintained. No joint effusion is present. SOFT TISSUE: Normal. IMPRESSION: Stable postoperative changes. DATA REPOSITORY: RADIATION DOSE DELIVERED:
== END 2020-09-22 14:34 ==
PROVIDERS: Visit Provider Physician Assistant
DX: S52.021D Displaced fracture of olecranon process without intraarticular extension of right ulna, subsequent encounter for closed fracture with routine healing; X58.XXXD Exposure to other specified factors, subsequent encounter
CPT/HCPCS: 73080

== ENCOUNTER 2020-10-06 01:36 | Outpatient (CLI) | payer MEDICARE, BC, SELFPAY ==
--- NOTE | 2020-10-06 07:16 | DI.MAMMO_ITS ---
EXAM: MG MAMMO SCREENING CLINICAL HISTORY: screening,Z12.39 TECHNIQUE: Bilateral full field digital CC and MLO mammographic images were obtained with 3D tomosyn thesis and utilizing computer aided detection (CAD). COMPARISON: Available for comparison. FINDINGS: Masses/Architectural Distortion: None seen. Microcalcifications: No suspicious pleomorphic-type are seen. Skin Thickening/Nipple Retraction: None. IMPRESSION: 1. No significant interval change with no specific features of malignancy noted. 2. Unless there is more urgent need, screening mammography is recommended, as per [employer] guidelines. BI-RADS Category 1 - Negative Breast Density - Category C - Heterogeneously dense Breast density category C or D implies that the patient has dense breast tissue. Dense breast tissue is very common and is not abnormal but dense breast tissue can make it harder to find cancer on a ma mmogram. Also, dense breast tissue may increase their breast cancer risk. This information about the result of the mammogram report was provided to the patient to raise their awareness. Use this report when you speak with the patient about their risks for breast cancer, which includes their family hist ory. At that time, you may recommend for more screening tests (Ultrasound or MRI) as they might be us eful based on their risk. A negative radiographic report should not delay biopsy if a dominant or clinically suspicious mass is present. Up to ten percent of cancers are not identified on mammography. A negative report may reinforce clinical impression. Adenosis and dense breasts may obscure an underlying neoplasm. False positive reports average 6 to 10%. Patient will receive a letter notifying them of these results.
== END 2020-10-06 01:56 ==
DX: Z12.31 Encounter for screening mammogram for malignant neoplasm of breast (principal)
CPT/HCPCS: 77063; 77067

== ENCOUNTER 2020-10-20 14:22 | Outpatient (CLI) | payer MEDICARE, BC, SELFPAY ==
--- NOTE | 2020-10-20 13:45 | DI.RAD_ITS ---
EXAM: XR ELBOW RT COMPLETE CLINICAL HISTORY: 1ST POST OP. TECHNIQUE: 2D digital imaging was performed. COMPARISON: CR XR ELBOW RT COMPLETE from 09/22/2020 FINDINGS: Again noted is the lung truly orientated some screw across the olecranon fossa fracture site. The fr acture line is still evident but without significant displacement. No radiographic evidence of hardw are failure, loosening, no radiographic evidence of osteomyelitis. The size of the elbow joint effus ion appears to have decreased. IMPRESSION: DATA REPOSITORY: RADIATION DOSE DELIVERED:
== END 2020-10-20 14:23 | disposition home or self-care (01) ==
LOC: DIORS 14:23
PROVIDERS: Visit Provider Student in an Organized Health Care Education/Training Program
DX: M25.421 Effusion, right elbow; Z98.890 Other specified postprocedural states; S52.021D Displaced fracture of olecranon process without intraarticular extension of right ulna, subsequent encounter for closed fracture with routine healing; X58.XXXD Exposure to other specified factors, subsequent encounter
CPT/HCPCS: 73080

== ENCOUNTER 2020-12-01 13:57 | Outpatient (CLI) | payer MEDICARE, BC, SELFPAY ==
--- NOTE | 2020-12-01 13:00 | DI.RAD_ITS ---
EXAM: XR ELBOW RT COMPLETE CLINICAL HISTORY: R elbow fx. TECHNIQUE: 2D digital imaging was performed. COMPARISON: CR XR ELBOW RT COMPLETE from 10/20/2020 FINDINGS: Again noted is a lung truly orientated screw across a healing olecranon fracture site. There appears to been further healing although the fracture is still faintly visible. No further displacement. N o new fractures evident. No radiographic evidence of loosening nor osteomyelitis. IMPRESSION: DATA REPOSITORY: RADIATION DOSE DELIVERED:
== END 2020-12-01 13:58 | disposition home or self-care (01) ==
LOC: DIORS 13:57
PROVIDERS: Visit Provider Student in an Organized Health Care Education/Training Program
DX: S52.021D Displaced fracture of olecranon process without intraarticular extension of right ulna, subsequent encounter for closed fracture with routine healing (principal); S76.012D Strain of muscle, fascia and tendon of left hip, subsequent encounter; M75.81 Other shoulder lesions, right shoulder; X58.XXXD Exposure to other specified factors, subsequent encounter
CPT/HCPCS: 99213; 73080

== ENCOUNTER 2020-12-24 03:04 | Outpatient (CLI) | payer MEDICARE, BC, SELFPAY ==
[2020-12-24 13:17] LABS: Anion Gap 7.1 mmol/L (3-11); BUN 12 mg/dL (7-18); CO2 28.9 mmol/L (21.0-32.0); CREATININE 1.2 mg/dL (0.55-1.02); Calcium 9.2 mg/dL (8.5-10.1); Chloride 109 mmol/L (98-107); Estimated GFR 44.16 (mL/min/1.73m2); Glucose 77 mg/dL (74-106); Potassium 4.5 mmol/L (3.5-5.1); Sodium 145 mmol/L (136-145)
== END 2020-12-24 03:05 | disposition home or self-care (01) ==
LOC: LOS 03:04
DX: N18.30 Chronic kidney disease, stage 3 unspecified (principal)
CPT/HCPCS: 36415; 80048

== ENCOUNTER 2021-07-28 04:08 | Outpatient (CLI) | payer MEDICARE, BC, SELFPAY ==
[2021-07-28 10:56] LABS: ALT 25 U/L (14-59); AST 18 U/L (15-37); Albumin 3.8 g/dL (3.4-5.0); Alkaline Phosphatase 84 U/L (46-116); Anion Gap 7.2 mmol/L (3-11); BUN 15 mg/dL (7-18); Bilirubin, Total 0.6 mg/dL (0.2-1.0); CO2 29.8 mmol/L (21.0-32.0); CREATININE 1.2 mg/dL (0.55-1.02); Calcium 8.9 mg/dL (8.5-10.1); Calculated LDL 135 mg/dL (<100); Chloride 106 mmol/L (98-107); Cholesterol 277 mg/dL (<200); Estimated GFR 44.16 (mL/min/1.73m2); Glucose 82 mg/dL (74-106); HDL Cholesterol 134 mg/dL (40-60); Potassium 4.2 mmol/L (3.5-5.1); Sodium 143 mmol/L (136-145); Total Protein 6.5 g/dL (6.4-8.2); Triglyceride 43 mg/dL (<150)
== END 2021-07-28 04:09 | disposition home or self-care (01) ==
LOC: LBO 04:08
DX: E78.5 Hyperlipidemia, unspecified (principal); Z00.00 Encounter for general adult medical examination without abnormal findings
CPT/HCPCS: 36415; 80053; 80061

== ENCOUNTER 2021-09-09 01:04 | Outpatient (CLI) | payer MEDICARE, BC, SELFPAY ==
--- NOTE | 2021-09-09 10:10 | DI.CT_ITS ---
Exam(s) CT CHEST WO EXAM: CT CHEST WO CLINICAL HISTORY: f/u Previous left lung 6-7mm nodule,r91.1 TECHNIQUE: CT examination of the chest was performed without contrast administration. COMPARISON: CT CT CHEST PE CTA from 04/16/[address] CHEST PE CTA from 04/16/2020 FINDINGS: Images obtained through the upper abdomen show unremarkable appearance of visualized portions of the liver, spleen, pancreas, adrenals, and kidneys. There is no mediastinal or hilar adenopathy. Mediastinal vascular structures appear intact by noncon trast criteria. Tracheobronchial tree appears intact. No pleural effusion or pleural-based mass. A previously identified 6 millimeter mean diameter left fissural pulmonary nodule seen on CT of 2019 is unchanged on today's examination. No new pulmonary nodule seen.. IMPRESSION: Stable left major fissure associated pulmonary nodule, 6 millimeters mean diameter. If the patient i s a smoker, follow-up chest CT would be recommended in 12 months following LDCT screening protocol. RADIATION DOSE DELIVERED: 406.58mGy.cm Total DLP 9.91mGy CTDIvol 406.58mGy.cm Total DLP 9.91mGy CTDIvol RADIATION OPTIMIZATION: All CT scans at this facility use at least one of these dose optimization te chniques: automated exposure control; mA and/or kV adjustment per patient size (includes targeted exa ms where dose is matched to clinical indication); or iterative reconstruction.
== END 2021-09-09 01:24 ==
DX: R91.1 Solitary pulmonary nodule (principal)
CPT/HCPCS: 71250

== ENCOUNTER 2021-10-12 01:35 | Outpatient (CLI) | payer MEDICARE, BC, SELFPAY ==
--- NOTE | 2021-10-12 07:00 | DI.MAMMO_ITS ---
Exam(s) MAMMO SCREENING EXAM: MAMMO SCREENING CLINICAL HISTORY: screening,z12.39. TECHNIQUE: Bilateral full field digital CC and MLO mammographic images were obtained with 3D tomosyn thesis and utilizing computer aided detection (CAD). COMPARISON: Prior mammograms were reviewed, the most recent being October 2020. FINDINGS: Fibroglandular tissue pattern is again noted be moderately dense, this decreasing sensitivity mammogr am for finding hidden underlying lesions. There are no CAD designations. No new significant radiograph findings in the right breast. In the left breast on 3D cc imaging there is a suggestion of and nodular density measuring 5 x 4 mill imeters located 4 cm in from the nipple, slightly lateral of center. No malignant-appearing microcal cification groups in this region or elsewhere in in either breast There is no significant architectural distortion nor skin thickening-retraction. IMPRESSION: Dense bilateral fibroglandular tissue. No radiographic evidence of malignancy in right breast. Poss ible left breast nodule. Spot compression cc view and ultrasound recommended. BI-RADS Category 0 - Assessment Incomplete: Need additional imaging evaluation Density: Breast density Category C or D implies that the patient has dense breast tissue. Dense breast tissue can make it harder to find cancer on a mammogram. Dense breast tissue is also associated with an incr eased risk of breast cancer. This information about the result of the mammogram report was provided to the patient to raise their awareness. Use this report when you speak with the patient about their risks for breast cancer, which includes their family history. At that time, you may recommend additional screening tests (Ultrasoun d or MRI) as these tests may add significant information. A negative radiographic report should not delay biopsy if a dominant or clinically suspicious mass is present. Up to ten percent of cancers are not identified on mammography. A negative report may reinforce clinical impression. Adenosis and dense breasts may obscure an underlying neoplasm. False positive reports average 6 to 10%. Patient will receive a letter notifying them of these results.
== END 2021-10-12 01:55 ==
DX: Z12.31 Encounter for screening mammogram for malignant neoplasm of breast (principal); R92.8 Other abnormal and inconclusive findings on diagnostic imaging of breast
CPT/HCPCS: 77063; 77067

== ENCOUNTER 2021-10-23 00:11 | Outpatient (CLI) | payer MEDICARE, BC, SELFPAY ==
--- NOTE | 2021-10-23 13:30 | DI.MAMMO_ITS ---
Exam(s) MG MAMMO SCREEN CALL BACK UNI US BREAST LT LIMITED EXAM: MG MAMMO SCREEN CALL BACK UNI and U/S breast LT limited CLINICAL HISTORY: NODULAR DENSITY LEFT BREAST. TECHNIQUE: Craniocaudal and mediolateral oblique Full Field Digital Mammography views of the left br east with Computer Aided Diagnosis followed by Tomosynthesis and left breast ultrasound. COMPARISON: Comparison is made with prior examinations. FINDINGS: Mammography/Tomosynthesis: Masses/Architectural Distortion: None seen. Microcalcifictions: No suspicious pleomorphic-type are seen. Skin Thickening/Nipple Retraction: None. Limited left breast US: Echotexture: Normal appearance of the glandular tissue. Shadowing: No suspicious foci. Cyst: None. Solid lesions: None seen. Ductal dilation: None. IMPRESSION: 1. No evidence of malignancy is noted. 2. Unless there is more urgent need, follow-up screening mammography is recommended, as per [employer] guidelines. 3. The findings were discussed with the patient on the date of the examination. BI-RADS Category 1 - Negative Breast Density - Category C - Heterogeneously dense Breast density Category C or D implies that the patient has dense breast tissue. Dense breast tissue can make it harder to find cancer on a mammogram. Dense breast tissue is also associated with an incr eased risk of breast cancer. This information about the result of the mammogram report was provided to the patient to raise their awareness. Use this report when you speak with the patient about their risks for breast cancer, which includes their family history. At that time, you may recommend additional screening tests (Ultrasoun d or MRI) as these tests may add significant information. A negative radiographic report should not delay biopsy if a dominant or clinically suspicious mass is present. Up to ten percent of cancers are not identified on mammography. A negative report may reinforce clinical impression. Adenosis and dense breasts may obscure an underlying neoplasm. False positive reports average 6 to 10%. Patient will receive a letter notifying them of these results.
== END 2021-10-23 00:31 ==
DX: Z12.31 Encounter for screening mammogram for malignant neoplasm of breast (principal); R92.8 Other abnormal and inconclusive findings on diagnostic imaging of breast; N64.59 Other signs and symptoms in breast
CPT/HCPCS: 76642; 77063; 77067

== ENCOUNTER → 2022-08-26 00:58 | Outpatient (CLI) | payer MEDICARE, BC, SELFPAY ==
--- NOTE | 2022-08-26 08:00 | DI.DEXA_ITS ---
Exam(s) XR DEXA BONE DENSITY W/WO JERROD EXAM: XR DEXA BONE DENSITY W/WO JERROD CLINICAL HISTORY: f/u osteoporosis,M81.0 TECHNIQUE: [employer] C densitometer analysis of left hip, lumbar spine and left forearm. COMPARISON: DX DEXA BONE DENSITY WITH JERROD from 05/04/[address] CHEST WO from 09/09/2021 FINDINGS: Lateral view of the thoracic and lumbar spine shows no evidence of compression fractures. Bone mineral density measurements of the lumbar spine correspond to a total T-score of -3.2, in the o steoporotic range. This represents a 4.7 percent decrease from 2016. Bone mineral density measurements of the left hip correspond to a total T-score of -2.2. The femora l neck T-score is -2.2, in the osteopenic range. This represents a 6.2 percent decrease from 2016.. The left forearm bone mineral density measurements correspond to a T-score of the distal 3rd of -3.5 , in the osteoporotic range. The right forearm was scanned on the prior exam which showed a T-score in the distal 3rd -2.6. IMPRESSION: Osteoporosis of the lumbar spine and left forearm. Osteopenia of the left hip
== END ==
PROVIDERS: PCP Family Medicine; Visit Provider Family Medicine
DX: M81.0 Age-related osteoporosis without current pathological fracture (principal); Z13.820 Encounter for screening for osteoporosis
CPT/HCPCS: 77080

== ENCOUNTER 2022-10-19 02:11 | Outpatient (CLI) | payer MEDICARE, BC, SELFPAY ==
[2022-10-19 09:15] LABS: Abs Immature Grans 0.01 10^3/uL (0.0-0.06); Absolute Basophil Count 0.05 10^3/uL (0.0-0.2); Absolute Eosinophil Count 0.33 10^3/uL (0.0-0.7); Absolute Lymphocyte Count 1.77 10^3/uL (1.2-3.4); Absolute Neutrophil Count 2.67 10^3/uL (1.2-6.7); Eosinophils % 6.3; HCT 39.9 % (36.0-46.0); HGB 13.3 g/dL (11.2-15.7); Immature Grans % 0.2; Lymphocytes % 33.8; MCH 30.2 pg (27.0-33.0); MCHC 33.3 % (32.0-36.0); MCV 91 fL (80-95); MPV 9.3 fL (8.0-11.0); Monocytes % 7.6; Neutrophils % 51.1; Platelet Count 267 10^3/uL (130-400); RDW-SD 40.4 fL; WBC 5.23 10^3/uL (4.4-10.8)
[2022-10-19 09:21] LABS: Bilirubin Negative (Negative); Blood Negative (Negative); Clarity Clear (Clear); Glucose Negative (Negative); Ketones Negative (Negative); Leukocyte Esterase Negative (Negative); Nitrite Negative (Negative); Specific Gravity 1.015 (1.005-1.025); Urobilinogen 0.2 EU/dL (Up TO 0.2)
[2022-10-19 09:55] LABS: Anion Gap 4.1 mmol/L (3-11); BUN 17 mg/dL (7-18); CO2 31.9 mmol/L (21.0-32.0); CREATININE 1.2 mg/dL (0.55-1.02); Calcium 9.2 mg/dL (8.5-10.1); Chloride 103 mmol/L (98-107); Glucose 84 mg/dL (74-106); PHOSPHORUS 4.9 mg/dL (2.6-4.7); Sodium 139 mmol/L (136-145)
[2022-10-19 10:18] LABS: Vitamin D 25 Total 63.8 ng/mL (30-100)
[2022-10-19 17:59] LABS: Parathyroid Hormone,Intact 33 pg/mL (19-88)
[2022-10-20 10:03] LABS: Calcium (Random Urine) 1.7 mg/dL (See Note)
== END 2022-10-19 02:12 | disposition home or self-care (01) ==
PROVIDERS: PCP Family Medicine; Visit Provider Family Medicine
DX: I10 Essential (primary) hypertension (principal); N18.31 Chronic kidney disease, stage 3a; M81.0 Age-related osteoporosis without current pathological fracture; R30.0 Dysuria
CPT/HCPCS: 36415; 80048; 82306; 83735; 81003; 82340; 83970; 84100; 85025

== ENCOUNTER 2022-12-02 11:51 | Outpatient (CLI) | payer MEDICARE, BC, SELFPAY ==
--- NOTE | 2022-12-02 08:45 | DI.RAD_ITS ---
Exam(s) XR HIP LT AP LAT ONLY EXAM: XR HIP LT AP LAT ONLY CLINICAL HISTORY: left hip pain. TECHNIQUE: 2D digital imaging was performed. Two views. CR XR DEXA BONE DENSITY W/WO JERROD from 08/26/2022 FINDINGS: BONES: No acute fracture is present. No bony destructive lesion is seen. A left hip prosthesis is in place which show satisfactory alignment. JOINTS: No dislocation present. SOFT TISSUE: Normal. IMPRESSION: Unremarkable left hip prosthesis. DATA REPOSITORY: RADIATION DOSE DELIVERED:
== END 2022-12-02 11:52 | disposition home or self-care (01) ==
LOC: DIORS 11:52
PROVIDERS: PCP Family Medicine; Referring Provider Family Medicine; Visit Provider Physician Assistant
DX: M70.72 Other bursitis of hip, left hip; Z96.642 Presence of left artificial hip joint; G89.29 Other chronic pain
CPT/HCPCS: 99214; 73502

== ENCOUNTER → 2023-02-07 15:15 | Outpatient (BNVA) | payer MEDICARE, BC, SELFPAY | PROVIDERS: PCP Family Medicine; Referring Provider Family Medicine; Visit Provider Student in an Organized Health Care Education/Training Program | DX: M70.72 Other bursitis of hip, left hip (principal) | CPT/HCPCS: 20611; J1040 ==

== ENCOUNTER 2023-05-05 18:25 | Emergency (ER) | payer MEDICARE, BC, SELFPAY ==
[2023-05-05 18:30] VITALS: BP 126/50; PULSE 90; RESP 20; TEMP 36.2; O2SAT 97
--- NOTE | 2023-05-05 18:30 | DI.RAD_ITS ---
Exam(s) XR WRIST LT LIMITED XR WRIST LT COMPLETE EXAM: XR WRIST LT LIMITED CLINICAL HISTORY: pain from fall, scaphoid?. TECHNIQUE: 2D digital imaging was performed. Four views. COMPARISON: CR LEFT HAND COMPLETE from 12/08/2012 CR LEFT HAND COMPLETE from 03/06/2018 CR,XR XR WRIST LT COMPLETE from 05/05/2023 FINDINGS: BONES: No acute fracture is present. No bony destructive lesion is seen. JOINTS: The carpal bones are normally aligned. Degenerative changes are noted at the scaphoid trape zium joint. Milder degenerative changes noted at the radial carpal joint. SOFT TISSUE: Normal. IMPRESSION: Degenerative changes. No acute abnormality. DATA REPOSITORY: RADIATION DOSE DELIVERED:
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
[2023-05-05] MEDS: Acetaminophen 325 MG TAB 650 MG PO (18:51)
[2023-05-05] MEDS: Ondansetron O.D.T. 4 MG TABEF SL (18:52)
--- NOTE | 2023-05-05 20:27 | DI.VRAD_ITS ---
PROCEDURE INFORMATION: Exam: XR Left Wrist Exam date and time: 05/05/2023 7:45 PM Age: 72 years old Clinical indication: Other: Fall, pain deformity TECHNIQUE: Imaging protocol: Radiologic exam of the left wrist. Views: 3 or more views. COMPARISON: CR LEFT HAND COMPLETE 03/06/2018 3:51 PM FINDINGS: Bones/joints: Bones are mildly osteopenic. Mild degenerative changes are noted in the radiocarpal joint. Moderate degenerative changes noted between the scaphoid and trapezius. Osseous alignment is normal. No acute fracture. Soft tissues: Normal. IMPRESSION: No acute abnormality Dictated and Authenticated by: Dragan Price MD. Ordering:MANJU Fontaine MD
--- NOTE | 2023-05-05 21:02 | DI.VRAD_ITS ---
PROCEDURE INFORMATION: Exam: XR Left Wrist Exam date and time: 05/05/2023 8:57 PM Age: 72 years old Clinical indication: Other: Pain from fall, scaphoid? TECHNIQUE: Imaging protocol: Radiologic exam of the left wrist. Views: 1 or 2 views. COMPARISON: CR XR WRIST LT COMPLETE 05/05/2023 7:45 PM FINDINGS: Bones/joints: Moderate degenerative changes seen between the scaphoid and trapezium bones. Osseous alignment is normal. No acute fracture. Soft tissues: Normal. IMPRESSION: No acute abnormality. Degenerative changes as noted. Dictated and Authenticated by: Dragan Price MD. Ordering:MANJU Fontaine MD
== END 2023-05-05 21:23 | disposition home or self-care (01) ==
PROVIDERS: Emergency Provider Emergency Medicine; PCP Family Medicine
DX: M25.531 Pain in right wrist (principal); M25.532 Pain in left wrist; W19.XXXA Unspecified fall, initial encounter
CPT/HCPCS: 99284; 73100; 73110

== ENCOUNTER → 2023-06-09 11:20 | Outpatient (BNVA) | payer MEDICARE, BC, SELFPAY | PROVIDERS: PCP Family Medicine; Referring Provider Family Medicine; Visit Provider Student in an Organized Health Care Education/Training Program | DX: M19.032 Primary osteoarthritis, left wrist (principal) | CPT/HCPCS: 99213 ==

== ENCOUNTER 2023-08-17 04:25 | Outpatient (CLI) | payer MEDICARE, BC, SELFPAY ==
[2023-08-17 12:18] LABS: Bilirubin Negative (Negative); Blood Trace-intact (Negative); Clarity Clear (Clear); Glucose Negative (Negative); Ketones Negative (Negative); Leukocyte Esterase Negative (Negative); Nitrite Negative (Negative); Urobilinogen 0.2 mg/dL (Up to 0.2)
[2023-08-17 12:27] LABS: Anion Gap 9.5 mmol/L (3-11); BUN 22 mg/dL (7-18); CO2 25.5 mmol/L (21.0-32.0); CREATININE 1.4 mg/dL (0.55-1.02); Calcium 9.2 mg/dL (8.5-10.1); Chloride 103 mmol/L (98-107); Estimated GFR 39.48 (mL/min/1.73m2); Glucose 81 mg/dL (74-106); PHOSPHORUS 4.1 mg/dL (2.6-4.7); Potassium 3.7 mmol/L (3.5-5.1); Sodium 138 mmol/L (136-145)
[2023-08-17 12:34] LABS: WBC 0-2 HPF (0-5)
[2023-08-17 12:35] LABS: Bacteria Rare HPF (Negative); C & S Indicated? No; Casts Negative LPF (Negative); Crystals Negative HPF (Negative); Epithelial Cells Few HPF (Negative); Mucus Negative (Negative); RBC 0-2 HPF (0-2)
[2023-08-18 11:11] LABS: Magnesium Random Urine 2.3 mg/dL (See Note)
== END 2023-08-17 04:26 | disposition home or self-care (01) ==
LOC: LOS 04:25
PROVIDERS: PCP Family Medicine; Visit Provider Family Medicine
DX: I10 Essential (primary) hypertension (principal); N18.31 Chronic kidney disease, stage 3a; R30.0 Dysuria; M81.0 Age-related osteoporosis without current pathological fracture
CPT/HCPCS: 36415; 80048; 83735; 81003; 81015; 82340; 84100

== ENCOUNTER → 2023-09-08 01:19 | Outpatient (CLI) | payer MEDICARE, BC, SELFPAY ==
--- NOTE | 2023-09-08 15:18 | DI.MAMMO_ITS ---
Exam(s) MAMMO SCREENING EXAM: MAMMO SCREENING CLINICAL HISTORY: screening,Z12.39 TECHNIQUE: Bilateral full field digital CC and MLO mammographic images were obtained with 3D tomosyn thesis and utilizing computer aided detection (CAD). COMPARISON: Available for comparison. FINDINGS: Masses/Architectural Distortion: None seen. Microcalcifications: No suspicious pleomorphic-type are seen. Skin Thickening/Nipple Retraction: None. IMPRESSION: 1. No significant interval change with no specific features of malignancy noted. 2. Unless there is more urgent need, screening mammography is recommended, as per [employer] guidelines. BI-RADS Category 1 - Negative Breast Density - Category C - Heterogeneously dense Breast density category C or D implies that the patient has dense breast tissue. Dense breast tissue is very common and is not abnormal but dense breast tissue can make it harder to find cancer on a ma mmogram. Also, dense breast tissue may increase their breast cancer risk. This information about the result of the mammogram report was provided to the patient to raise their awareness. Use this report when you speak with the patient about their risks for breast cancer, which includes their family hist ory. At that time, you may recommend for more screening tests (Ultrasound or MRI) as they might be us eful based on their risk. A negative radiographic report should not delay biopsy if a dominant or clinically suspicious mass is present. Up to ten percent of cancers are not identified on mammography. A negative report may reinforce clinical impression. Adenosis and dense breasts may obscure an underlying neoplasm. False positive reports average 6 to 10%. Patient will receive a letter notifying them of these results.
== END ==
PROVIDERS: PCP Family Medicine; Visit Provider Family Medicine
DX: Z12.31 Encounter for screening mammogram for malignant neoplasm of breast (principal)
CPT/HCPCS: 77063; 77067

== ENCOUNTER 2024-02-20 05:59 | Outpatient (CLI) | payer MEDICARE, BC, SELFPAY ==
[2024-02-20 12:55] LABS: ALT 21 U/L (14-59); AST 19 U/L (15-37); Albumin 3.7 g/dL (3.4-5.0); Alkaline Phosphatase 85 U/L (46-116); Anion Gap 6.9 mmol/L (3-11); BUN 15 mg/dL (7-18); Bilirubin, Total 0.7 mg/dL (0.2-1.0); CO2 29.1 mmol/L (21.0-32.0); CREATININE 1.3 mg/dL (0.55-1.02); Calcium 9.1 mg/dL (8.5-10.1); Calculated LDL 156 mg/dL (<100); Chloride 105 mmol/L (98-107); Cholesterol 282 mg/dL (<200); Estimated GFR 42.88 (mL/min/1.73m2); Glucose 86 mg/dL (74-106); HDL Cholesterol 119 mg/dL (40-60); Potassium 3.9 mmol/L (3.5-5.1); Sodium 141 mmol/L (136-145); Total Protein 6.7 g/dL (6.4-8.2); Triglyceride 36 mg/dL (<150)
== END 2024-02-20 06:00 | disposition home or self-care (01) ==
LOC: LOS 05:59
PROVIDERS: PCP Family Medicine; Visit Provider Family Medicine
DX: Z13.6 Encounter for screening for cardiovascular disorders (principal); E78.5 Hyperlipidemia, unspecified; Z00.00 Encounter for general adult medical examination without abnormal findings; N18.31 Chronic kidney disease, stage 3a
CPT/HCPCS: 36415; 80053; 80061

== ENCOUNTER 2024-03-05 04:30 | Outpatient (CLI) | payer MEDICARE, BC, SELFPAY ==
[2024-03-09 15:16] LABS: Apolipoprotein B, Serum 111 mg/dL (48-124); Beta VLDL Cholesterol Not Detected mg/dL (<15); Beta VLDL Triglycerides Not Detected mg/dL (<15); Cholesterol, Total, CDC 298 mg/dL; Chylomicron Cholesterol Not Detected; Chylomicron Triglycerides Not Detected; HDL Cholesterol, CDC 91 mg/dL (>=50); LDL Cholesterol 193 mg/dL; LDL Triglycerides 32 mg/dL (<=50); Lp(a) Cholesterol <5 mg/dL (<5); LpX Not detected; Triglycerides, CDC 83 mg/dL; VLDL Cholesterol 14 mg/dL (<30); VLDL Triglycerides 29 mg/dL (<120)
== END 2024-03-05 04:31 | disposition home or self-care (01) ==
LOC: LOS 04:31
PROVIDERS: PCP Family Medicine; Referring Provider Family Medicine; Visit Provider Family Medicine
DX: E78.49 Other hyperlipidemia (principal)
CPT/HCPCS: 36415; 80061; 82172; 82664

== ENCOUNTER 2024-05-06 04:27 | Observation (INO) | payer MEDICARE, BC, SELFPAY ==
[2024-05-06] VITALS (33 sets, daily range): BP systolic 98–124; BP diastolic 52–73; PULSE 70–88; RESP 10–29; TEMP 36.8–37.3; O2SAT 70–99
--- NOTE | 2024-05-06 | DI.RAD_ITS ---
Exam(s) XR HAND RT COMPLETE EXAM: XR HAND RT COMPLETE CLINICAL HISTORY: r/o metacarpal fracture. TECHNIQUE: 2D digital imaging was performed. COMPARISON: No exams were available for comparison FINDINGS: 3 views There is no evidence of acute fracture or dislocation. There is degenerative narrowing of the metaca rpophalangeal joints, most evident in the 4th and 5th MCP joints. No metacarpal fractures. There is also degenerative narrowing of the triscaphe joint in the wrist. Phalanges are intact. Some degene rative changes noted in the DIP joints. IMPRESSION: As above but no acute fractures evident in the right hand. Dorsal soft tissue swelling is noted. DATA REPOSITORY: RADIATION DOSE DELIVERED:
--- NOTE | 2024-05-06 04:15 | RT.EKG_ITS ---
APPROVED REPORT Exam: Resting ECG Reason for Exam: hypotension Patient Location: E HR:86 bpm ECG Measurements Heart Rate 86 AXIS NC 166 P 44 QRSd 85 QRS 64 QT 411 T 67 QTc 493 Conclusion Sinus rhythm...normal P axis, V-rate 60- 99 Normal Electrocardiogram
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
[2024-05-06] MEDS: Omnipaque 350 MG/ML 100 ML BTL IJ (04:41)
[2024-05-06 04:42] LABS: Abs Immature Grans 0.04 10^3/uL (0.0-0.06); Absolute Basophil Count 0.07 10^3/uL (0.0-0.2); Absolute Eosinophil Count 0.07 10^3/uL (0.0-0.7); Absolute Lymphocyte Count 0.91 10^3/uL (1.2-3.4); Absolute Monocyte Count 0.63 10^3/uL (0.1-0.8); Absolute Neutrophil Count 8.33 10^3/uL (1.2-6.7); Basophils % 0.7 %; Eosinophils % 0.7 %; HCT 36.7 % (36.0-46.0); HGB 12.4 g/dL (11.2-15.7); Immature Grans % 0.4 %; Lymphocytes % 9.1 %; MCH 30.6 pg (27.0-33.0); MCHC 33.8 % (32.0-36.0); MCV 91 fL (80-95); MPV 9.2 fL (8.0-11.0); Monocytes % 6.3 %; Neutrophils % 82.8 %; Platelet Count 264 10^3/uL (130-400); RBC 4.05 10^6/uL (3.93-5.22); RDW 12.2 % (11.7-14.6); RDW-SD 41.1 fL; WBC 10.05 10^3/uL (4.4-10.8)
[2024-05-06] MEDS: Normal Saline - Diluent 50 ML VIAL IJ (04:43)
[2024-05-06 04:53] LABS: Lipase 28 U/L (16-77)
[2024-05-06 05:04] LABS: ALT 26 U/L (14-59); AST 32 U/L (15-37); Albumin 3.4 g/dL (3.4-5.0); Alkaline Phosphatase 79 U/L (46-116); BUN 11 mg/dL (7-18); Bilirubin, Total 0.44 mg/dL (0.2-1.0); CREATININE 1.2 mg/dL (0.55-1.02); Calcium 8.5 mg/dL (8.5-10.1); Chloride 107 mmol/L (98-107); Estimated GFR 47.21 (mL/min/1.73m2); Glucose 98 mg/dL (74-106); Magnesium 1.6 mg/dL (1.8-2.4); Potassium 4.3 mmol/L (3.5-5.1); Sodium 143 mmol/L (136-145); Total Protein 6.2 g/dL (6.4-8.2); Troponin I < 50 ng/L (< or =60)
--- NOTE | 2024-05-06 05:19 | DI.VRAD_ITS ---
PROCEDURE INFORMATION: Exam: CT Head Without Contrast Exam date and time: 05/06/2024 4:47 AM Age: 73 years old Clinical indication: Injury or trauma; Blunt trauma (contusions or hematomas); Injury date: 05/06/24; Patient HX: Fall, confused TECHNIQUE: Imaging protocol: Computed tomography of the head without contrast. Radiation optimization: All CT scans at this facility use at least one of these dose optimization techniques: automated exposure control; mA and/or kV adjustment per patient size (includes targeted exams where dose is matched to clinical indication); or iterative reconstruction. COMPARISON: CR NASAL BONES 03/06/2018 3:51 PM FINDINGS: Brain: Prominent VR space in the medial right temporal lobe. Mild generalized volume loss of the brain. Minimal chronic small-vessel ischemic change. No brain edema. No intracranial hemorrhage. Cerebral ventricles: No ventriculomegaly. Paranasal sinuses: Visualized sinuses are unremarkable. No fluid levels. Mastoid air cells: Unremarkable. Bones: Unremarkable. No acute fracture. Soft tissues: Left frontal scalp laceration. IMPRESSION: No acute brain findings. PROCEDURE INFORMATION: Exam: CT Cervical Spine Without Contrast Exam date and time: 05/06/2024 4:47 AM Age: 73 years old Clinical indication: Injury or trauma; Blunt trauma (contusions or hematomas); Injury date: 05/06/24; Patient HX: Fall, confused TECHNIQUE: Imaging protocol: Computed tomography of the cervical spine without contrast. Radiation optimization: All CT scans at this facility use at least one of these dose optimization techniques: automated exposure control; mA and/or kV adjustment per patient size (includes targeted exams where dose is matched to clinical indication); or iterative reconstruction. COMPARISON: CT CHEST WO 09/09/2021 10:04 AM FINDINGS: Bones: Multilevel neural foraminal narrowing secondary to degenerative change. No fracture. Lungs: Smooth interlobular septal thickening evident at the lung apices suggesting hydrostatic interstitial pulmonary edema/CHF. Soft tissues: Unremarkable. IMPRESSION: 1. Smooth interlobular septal thickening evident at the lung apices suggesting hydrostatic interstitial pulmonary edema/CHF. 2. No fracture. Dictated and Authenticated by: Husam Contreras MD. Ordering:RAY Velásquez MD
--- NOTE | 2024-05-06 05:21 | DI.CT_ITS ---
Exam(s) CT HEAD CERVICAL SPINE WO EXAM: CT HEAD CERVICAL SPINE WO CLINICAL HISTORY: fall confused. TECHNIQUE: Imaging Protocol: Axial computed tomography images with coronal and sagittal reformatted images were created and reviewed COMPARISON: No exams were available for comparison FINDINGS: BRAIN: There are no skull fractures nor fluid in the visualized paranasal sinuses. There is no evidence of intracranial hemorrhage, mass effect, or shift of midline structures. There are no extra-axial fluid collections. The ventricles are not enlarged or shifted and there is no blo od within the ventricular system nor within the basal cisterns. There is unilateral CSF hypo density on the right side which measures 1.2 by 1.2 by 1.6 cm.. Unrelat ed to trauma and probably represents developmental sub lenticular cyst CERVICAL SPINE: There is no evidence of fracture nor listhesis. No significant prevertebral soft tissue swelling. C1 arch and odontoid are intact. There is chronic disc space narrowing at C4-5, C5-6, and C6-7 levels. No listhesis at these levels. There is facet arthropathy evident in the mid and upper cervical levels; less so in the inferior lev els. There is no facet malalignment. There is some calcification in the supraspinous ligament. No fractures of the spinous process is evident. IMPRESSION: No acute intracranial findings on this noninfused CT scan of the brain.Incidentally noted is a 12 x 1 6 x 12 mm sub lenticular cyst in the right-side of the brain. No evidence of cervical spine fracture, malalignment, nor acute compromise of the cervical spinal can al. Multilevel degenerative disease and facet arthropathy. RADIATION DOSE DELIVERED: 1,334.22mGy.cm Total DLP DATA REPOSITORY: All CT scans at this facility are submitted to the National Radiology Data Registry (NRDR) Dose Index Registry (DIR) with the [employer] (ACR). RADIATION OPTIMIZATION: All CT scans at this facility use at least one of these dose optimization te chniques: automated exposure control; mA and/or kV adjustment per patient size (includes targeted exa ms where dose is matched to clinical indication); or iterative reconstruction.
--- NOTE | 2024-05-06 05:21 | DI.CT_ITS ---
Exam(s) CT CHEST/ABD/PEL W EXAM: CT CHEST/ABD/PEL W CLINICAL HISTORY: fall, hypotensive. TECHNIQUE: Imaging Protocol: Axial computed tomography images with coronal and sagittal reformatted images were created and reviewed CONTRAST MATERIAL: Intravenous: Omnipaque 350 Contrast volume:100 ml Oral: None COMPARISON: CT CT CHEST WO from 09/09/2021 FINDINGS: CHEST: LUNGS: No infiltrates nor lung contusions. No pleural effusions. No pneumothorax. No incidental co ncerning lung nodules.. No rib fractures identified. However, there is abnormal mild indentation of the anterior cortex of the body of the sternum which was not evident on the prior CT scan of 2021 an d consistent with a mild nondisplaced sternal fracture. There is no retrosternal hematoma. Also sli ght loss of height of superior endplate of T2 noted which was not evident in 2021. May be a subtle c ompression fracture less than 10 percent. No offset of the vertebral body. No facet malalignment. No other vertebral findings. Benign bone island in T3 again noted. MEDIASTINUM: No evidence of mediastinal hematoma. No hilar nor mediastinal adenopathy. Visualized t hyroid unremarkable. CARDIAC: Heart size is normal. There is no pericardial effusion.Caliber of the thoracic aorta is wit hin normal limits. No dissection. OSSEOUS: Abnormal findings as above.. ABDOMEN: There is no ascites. No evidence of bowel wall nor mesenteric hematoma. LIVER: No laceration. Subtle hypodensity in the subcapsular anterior right hepatic lobe is probably an incidental small hemangioma. No focal findings in the left hepatic lobe. GALLBLADDER/BILIARY: No obvious gallbladder pathology. CBD is not dilated. PANCREAS: No evidence of pancreatic mass nor dilatation of the pancreatic duct. SPLEEN: Intact. Normal size. No laceration. No lesions. Splenic and portal veins are patent. ADRENALS: There are no significant adrenal masses. KIDNEYS: No lacerations. No subcapsular hematomas.. No calculi nor hydronephrosis. No cysts nor so lid masses. ABDOMINAL AORTA: Intact. No aneurysm. LYMPH NODES: There is no retroperitoneal nor paraaortic adenopathy. ABDOMINAL WALL: No evidence of significant anterior abdominal wall nor inguinal hernia. GI: There is no evidence of bowel obstruction. PELVIS: LYMPH NODES: There is no intrapelvic nor inguinal adenopathy. GI: No evidence of appendicitis.Sigmoid diverticulosis without evidence of obvious acute diverticulit is. URINARY BLADDER: Partially obscured by beam hardening artifact from left hip prosthesis. REPRODUCTIVE: Uterus and adnexal regions appear unremarkable although partially obscured by beam hard ening artifact from left hip prosthesis. OSSEOUS: Left hip prosthesis. No acute fractures evident. No significant disc space narrowing. No listhesis. No osseous lesions. IMPRESSION: 1. There is a nondisplaced fracture of the anterior cortex of the body of the sternum. There is no e vidence of retrosternal/mediastinal hematoma. Great vessels are intact. 2. Slight indentation of the superior endplate of T2 vertebral body noted, also not previously eviden t on CT scan of September 2021. Correlation with any tenderness over this area recommended as this may or may not be acute. 3. No rib fractures identified. No prominent lung contusion. 4. No significant acute findings in the abdomen and pelvis RADIATION DOSE DELIVERED: 337.77mGy.cm Total DLP DATA REPOSITORY: All CT scans at this facility are submitted to the National Radiology Data Registry (NRDR) Dose Index Registry (DIR) with the [employer] (ACR). RADIATION OPTIMIZATION: All CT scans at this facility use at least one of these dose optimization te chniques: automated exposure control; mA and/or kV adjustment per patient size (includes targeted exa ms where dose is matched to clinical indication); or iterative reconstruction.
--- NOTE | 2024-05-06 05:22 | DI.RAD_ITS ---
Exam(s) XR FOREARM LT EXAM: XR FOREARM LT CLINICAL HISTORY: trauma. TECHNIQUE: 2D digital imaging was performed. COMPARISON: No exams were available for comparison FINDINGS: Two views No evidence of acute fracture the forearm bones. No elbow joint effusion. No swelling of the olecra non bursa. Radial head and neck appear unremarkable. Corticated osteophytic density seen dorsal to the ulnar styloid at the wrist. This does not have the appearance of an acute fracture fragment. Pablo ne density is age-appropriate. No osseous lesions. No radiopaque foreign bodies. IMPRESSION: No significant osseous findings in the left forearm bones. DATA REPOSITORY: RADIATION DOSE DELIVERED:
[2024-05-06] MEDS: Lactated Ringers 1,000 ML 1000 ML IV ×2 (05:31→06:37)
--- NOTE | 2024-05-06 05:34 | DI.VRAD_ITS ---
PROCEDURE INFORMATION: Exam: XR Left Forearm Exam date and time: 05/06/2024 5:14 AM Age: 73 years old Clinical indication: Injury or trauma; Blunt trauma (contusions or hematomas); Arm, lower and wrist; Left; Injury date: 05/06/24; Patient HX: Trauma, fall TECHNIQUE: Imaging protocol: Radiologic exam of the left forearm. Views: 2 views. COMPARISON: CR XR WRIST LT LIMITED 05/05/2023 20:57 FINDINGS: Bones/joints: Normal. Soft tissues: Normal. IMPRESSION: No acute findings. Dictated and Authenticated by: Manoj Blair MD. Ordering:RAY Velásquez MD
[2024-05-06] MEDS: MAGNESIUM SULFATE 2 GM/50 ML BAG IVINF (05:43)
--- NOTE | 2024-05-06 05:59 | DI.VRAD_ITS ---
PROCEDURE INFORMATION: Exam: CT Chest With Contrast; Diagnostic Exam date and time: 05/06/2024 4:51 AM Age: 73 years old Clinical indication: Injury or trauma; Generalized; Blunt trauma (contusions or hematomas); Injury date: 05/06/24; Patient HX: Fall, hypotensive TECHNIQUE: Imaging protocol: Diagnostic computed tomography of the chest with contrast. 3D rendering (Not supervised by radiologist): MIP and/or 3D reconstructed images were created by the technologist. Radiation optimization: All CT scans at this facility use at least one of these dose optimization techniques: automated exposure control; mA and/or kV adjustment per patient size (includes targeted exams where dose is matched to clinical indication); or iterative reconstruction. Contrast material: [id number]; Contrast volume: 100 ml; Contrast route: INTRAVENOUS (IV); COMPARISON: CT CHEST WO 01/03/2022 10:04 FINDINGS: Lungs: No airspace consolidation or ground-glass opacities. Stable left fissural nodule measuring 6 mm. Pleural spaces: No pleural effusion or pneumothorax. Heart: Unremarkable. No cardiomegaly. No pericardial effusion. Lymph nodes: Unremarkable. No enlarged lymph nodes. Vasculature: Unremarkable. No aortic aneurysm. Bones/joints: Slight depression in the superior endplate of T2 and a nondisplaced fracture deformity of the outer cortex of the body of the sternum. Both findings are new since the prior examination but not clearly acute. Soft tissues: Unremarkable. IMPRESSION: Indeterminate fractures of the sternum and T2 vertebral body as above. Clinical correlation is needed. Consider follow-up thoracic spine MRI if indicated. PROCEDURE INFORMATION: Exam: CT Abdomen And Pelvis With Contrast Exam date and time: 05/06/2024 4:51 AM Age: 73 years old Clinical indication: Injury or trauma; Generalized; Blunt trauma (contusions or hematomas); Injury date: 05/06/24; Patient HX: Fall, hypotensive TECHNIQUE: Imaging protocol: Computed tomography of the abdomen and pelvis with contrast. 3D rendering (Not supervised by radiologist): MIP and/or 3D reconstructed images were created by the technologist. Radiation optimization: All CT scans at this facility use at least one of these dose optimization techniques: automated exposure control; mA and/or kV adjustment per patient size (includes targeted exams where dose is matched to clinical indication); or iterative reconstruction. Contrast material: [id number]; Contrast volume: 100 ml; Contrast route: INTRAVENOUS (IV); COMPARISON: CT CHEST WO 01/03/2022 10:04 FINDINGS: Liver: Normal. No mass. Gallbladder and biliary ducts: Normal. No calcified stones. No ductal dilation. Pancreas: Normal. No ductal dilation. Spleen: Normal. No splenomegaly. Adrenal glands: Normal. No mass. Kidneys and ureters: Normal. No hydronephrosis. Stomach and bowel: No evidence of bowel obstruction. No mucosal thickening. Appendix: No evidence of appendicitis. Intraperitoneal space: No free fluid or free air. Vasculature: Unremarkable. No abdominal aortic aneurysm. Lymph nodes: Unremarkable. No enlarged lymph nodes. Urinary bladder: Unremarkable as visualized. Reproductive: Unremarkable as visualized. Bones/joints: Left hip arthroplasty. No acute fracture. Soft tissues: Unremarkable. IMPRESSION: No acute findings. Dictated and Authenticated by: Manoj Blair MD. Ordering:RAY Velásquez MD
[2024-05-06] MEDS: Hydrogen Peroxide 3% 480 ML BTL (06:21)
[2024-05-06] MEDS: Lidocaine 1% Multi-Dose W/EPI 1/100,000 10 ML VIAL IJ (07:14)
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
[2024-05-06] MEDS: ACETAMINOPHEN 1,000 MG/100 ML BTL 400 MG IVPB (08:14)
[2024-05-06] MEDS: Tetanus & Diphtheria Tox,ADULT 0.5 ML VIAL IM (08:15)
--- NOTE | 2024-05-06 09:23 | W.PC.ACHO ---
Registration Status: Primary Language: Preferred Language: ED Information & Data Chief Complaint Trauma 05/06/24 05:39 Chief Complaint Trauma 05/06/24 04:29 Triage Note pt fell down unknown number 05/06/24 04:29 of stairs, metal gate at bottom. Cspine tenderness. reports she fell last week has bump on head and bruise on hand from that. Believes the fall was sometime between 4pm and 10pm when her found her. gash to head appears to be on the left side and is covered with dried dark blood. pt is confused. able to hold conversation with EMS. does not recall chunk of time when the incident happened. Medical / Surgical History (Last Reviewed 05/06/24 @ 05:46 by Didier Gasca MD) Hx of angina pectoris Lung nodule seen on imaging study Basal cell carcinoma of face (12/08/12) Squamous cell carcinoma in situ (12/07/17) Uterine polyp Uterine prolapse (Last Reviewed 05/06/24 @ 05:46 by Didier Gasca MD) S/P total hip arthroplasty S/P appendectomy Hx of colonoscopy Closed fracture of right olecranon process (09/05/20) S/P rotator cuff repair Most Recent Vital Signs Temperature Source Temporal Artery Scan 05/06/24 04:29 Pulse 72 05/06/24 08:46 Pulse 74 05/06/24 08:46 Respiratory Rate 12 05/06/24 08:46 Respiratory Effort Normal, Non-Labored 05/06/24 05:39 Respiratory Depth Normal 05/06/24 04:36 Respiratory Pattern Normal 05/06/24 04:36 Blood Pressure 99/57 L 05/06/24 08:46 Blood Pressure Mean 71 05/06/24 08:46 Blood Pressure Position Supine 05/06/24 04:29 Pulse Oximetry 99 05/06/24 04:29 Oxygen Delivery Method Room Air 05/06/24 04:29 Oxygen Flow Rate 0 05/06/24 04:29 Pain Level 4 05/06/24 04:36 Allergies No Known Allergies Allergy (Verified 02/24/24 09:52) Precautions Isolation Standard precaution 05/06/24 05:39 IV IV Catheter Type [Right Peripheral IV Antecubital] IV Catheter Gauge [Right 18 Antecubital] Diet Orders Category Date Time Status Regular/Normal [DIET] Nutrition 05/06/24 Lunch Active Diagnostics 05/06/24 Range/Units 04:33 WBC 10.05 (4.4-10.8) 10^3/uL RBC 4.05 (3.93-5.22) 10^6/uL Hgb 12.4 (11.2-15.7) g/dL Hct 36.7 (36.0-46.0) % MCV 91 (80-95) fL MCH 30.6 (27.0-33.0) pg MCHC 33.8 (32.0-36.0) % RDW 12.2 (11.7-14.6) % Plt Count 264 (130-400) 10^3/uL MPV 9.2 (8.0-11.0) fL Immature Gran % 0.4 % Neutrophils % 82.8 % Lymphocytes % 9.1 % Monocytes % 6.3 % Eosinophils % 0.7 % Basophils % 0.7 % Nucleated RBC % 0.0 (0.0-0.3) % Absolute Neutrophils 8.33 H (1.2-6.7) 10^3/uL Absolute Lymphocytes 0.91 L (1.2-3.4) 10^3/uL Absolute Monocytes 0.63 (0.1-0.8) 10^3/uL Absolute Eosinophils 0.07 (0.0-0.7) 10^3/uL Absolute Basophils 0.07 (0.0-0.2) 10^3/uL Sodium 143 (136-145) mmol/L Potassium 4.3 (3.5-5.1) mmol/L Chloride 107 (98-107) mmol/L Carbon Dioxide 26.0 (21.0-32.0) mmol/L Anion Gap 10.0 (3-11) mmol/L BUN 11 (7-18) mg/dL Creatinine 1.2 H (0.55-1.02) mg/dL Est GFR (CKD-EPI 2020) 47.21 (mL/min/1.73m2) Glucose 98 (74-106) mg/dL Calcium 8.5 (8.5-10.1) mg/dL Magnesium 1.6 L (1.8-2.4) mg/dL Total Bilirubin 0.44 (0.2-1.0) mg/dL AST 32 (15-37) U/L ALT 26 (14-59) U/L Alkaline Phosphatase 79 (46-116) U/L Troponin I < 50 (< or =60) ng/L Total Protein 6.2 L (6.4-8.2) g/dL Albumin 3.4 (3.4-5.0) g/dL Lipase 28 (16-77) U/L ABO/Rh O Positive Antibody Screen NEGATIVE Intake and Output - 24 Hour Total 05/06/24 04:10 thru 05/06/24 07:43 Intake Total 1050 Balance 1050 Weight 60.2 kg Intake: IV 1050 Falls Risk Assessment History of Falls Admit Due to Fall 05/06/24 05:25 Contributing Factors No Factors 05/06/24 05:25 Ambulatory Aids Independent 05/06/24 05:25 Tubes/Lines With any additional score 05/06/24 05:25 Gait Evaluation No gait disturbance 05/06/24 05:25 Cognition No cognitive impairment 05/06/24 05:25 Fall Total Score 45 05/06/24 05:25 Level of Risk Moderate Risk 05/06/24 05:25 Problems (Last Reviewed 05/06/24 @ 05:46 by Didier Gasca MD) CHI (closed head injury) (Acute) Sternal fracture (Acute) Contusion of multiple sites (Acute) Laceration of forehead (Acute) Fall (Acute) v v v v v v v v v Sending and/or Receiving Nurses: Please use comment section below to note any information pertinent to the patient hand-off not included above. Information / Comments: Pt arrive to unit and placed in 229 Report received from: Ursula Briggs Rn
[2024-05-06] MEDS: Heparin 5,000 UNITS/ML VIAL 5000 UNITS SC ×2 (10:09→21:20)
[2024-05-06] MEDS: Lidocaine 5% Patch 1 PATCH TP (10:09)
[2024-05-06] MEDS: lamoTRIgine 100 MG TAB PO (10:13)
[2024-05-06] MEDS: Normal Saline Flush 10 ML SYR IVP ×2 (10:51→21:21)
[2024-05-06] MEDS: Rosuvastatin 5 MG TAB PO (11:12)
--- NOTE | 2024-05-06 11:55 | PHA.REVIEW2 ---
Pharmacy Admission Review Admission Clinical Review Admission Pharmacy Review: CHI (closed head injury) (Acute) Sternal fracture (Acute) Contusion of multiple sites (Acute) Laceration of forehead (Acute) Fall (Acute) No Known Allergies Allergy (Verified 02/24/24 09:52) Resuscitation Status Full Code Height 5 ft 4 in Weight 60.2 kg Pharmacy Admission Review Renal Dosing Renal Dosing: BUN 11 mg/dL (7-18) 05/06/24 04:33 Creatinine 1.2 mg/dL (0.55-1.02) H 05/06/24 04:33 Medications needing adjustments: Reviewed (CrCl 38.25 mL/min) List of meds needing interventions: Current medications are okay Anticoagulation Anticoagulation: Hgb 12.4 g/dL (11.2-15.7) 05/06/24 04:33 Hct 36.7 % (36.0-46.0) 05/06/24 04:33 Plt Count 264 10^3/uL (130-400) 05/06/24 04:33 Creatinine 1.2 mg/dL (0.55-1.02) H 05/06/24 04:33 DVT Prophylaxis: Reviewed (SCDs) Medications: Heparin (q12h) Opiate Usage Evaluate Pain Scale/Pains Meds: Reviewed (PRN hydromorphone - no doses given so far) Scheduled Bowel Reg ordered if on Opiates?: Yes (Metamucil) Relevant Labs Relevant Labs: Sodium 143 mmol/L (136-145) 05/06/24 04:33 Potassium 4.3 mmol/L (3.5-5.1) 05/06/24 04:33 Chloride 107 mmol/L (98-107) 05/06/24 04:33 Magnesium 1.6 mg/dL (1.8-2.4) L 05/06/24 04:33 Electrolytes, C-Reactive P, ESR: Reviewed (Mg 1.6 - repleted with infusion this morning) Cardiac Review Cardiac Review: Troponin I < 50 ng/L (< or =60) 05/06/24 04:33 Blood Pressure 98/64 0924 Blood Pressure 98/64 0923 Blood Pressure 99/57 0846 Blood Pressure 108/55 0831 Blood Pressure 102/57 0815 Blood Pressure 113/52 0801 Blood Pressure 108/65 0746 Blood Pressure 124/71 0731 BP, HR, EF%: Reviewed (HR WNL) QTc Review List meds needing interventions: 493 from 05/06/24 IV to PO Switch IV Medications: Reviewed (ondansetron, ketorolac and hydromorphone) Home Meds Home Med List reviewed: Reviewed Relevent Home Meds Not ordered & why?: alendronate (weekly) and bupropion Reached out to provider regarding bupropion. Waiting to hear back. Current Meds Current Medication Order Review: Intervened Comments: Added lidocaine patch removal order Retimed lidocaine and heparin to be at an even hour per pharmacy protocol
--- NOTE | 2024-05-06 13:30 | IN_ITS ---
PT Notes Visit Reasons: Sternal Fracture Inpatient Physical Therapy Evaluation Date: 05/06/24 Referring Doctor: Dr. Rajesh Robles PT Orders: PT CONSULT: limited ability to ambulate; fall with sternal fx and T2 fx Precautions: standard Patient Profile/Admitting Diagnosis: Patient admitted for observation after fall at home resulting in T2 superior endplate fx and sternal fx. Social History/Home Situation: Active and independent. Lives in private home wit h her . Typically walks 3x/day with her dog and participates in Independent Program in our outpatient PT clinic 2x/week. Equipment Owned/DME: hiking poles. Was issued FWW after hip replacement, although isn't sure if she still has it stored away. Subjective: Jennie states that she is sore all over. She has ongoing neck pain from a prior fall last week, when she stepped backwards while playing with her dog and struck the base of her neck on the wood stove. She then fell again yesterday, but is unable to recall any of the specifics surrounding the fall. She has pain in both knees, left groin, right hand and base of her neck. Objective: General Observation: Resting in bed with telemetry in place. Bruising noted throughout her face, UEs and LEs. Very guarded with cervical motion, demonstrating trunk rotation vs turning head. Mental Status: A&Ox3. ROM: Right Upper Extremity: Shoulder flexion assessed to 90* only due to sternal fx. Shoulder ER/IR are each WFL. Hand opening restricted bilat due to underlying OA (baseline per patient). Left Upper Extremity: Shoulder flexion assessed to 90* only due to sternal fx. Shoulder ER/IR are each WFL. Hand opening restricted bilat due to underlying OA (baseline per patient). Right Lower Extremity: WFL Left Lower Extremity: WFL. Able to demonstrate active IR/ER in sitting position with only mild discomfort through the groin. Cervical ROM: extension 5*; left rotation 40*, right rotation 40*; flexion 20* Strength: Right Upper Extremity: Grossly 3/5. Not assessed with resistance due to recent fxs. Left Upper Extremity: Grossly 3/5. Not assessed with resistance due to recent fxs. Right Lower Extremity: Hip flexion 4/5. Quads 4+/5. Ankle DF 5/5. Left Lower Extremity: Hip flexion 4/5. Quads 4+/5. Ankle DF 5/5. Bed Mobility/Transfers: rolling to side: supervision, with cues for log roll technique for pain management supine-sit: via sidelying, cues and min A sit-stand: supervision stand-sit: supervision Gait: Ambulates 100'x1 with FWW, then 130' x 1 with SBA only, no device. She demonstrates slow, cautious gait, but no losses of balance or safety concerns. Balance: Static Sitting: normal Dynamic Sitting: good Static Standing: good Dynamic Standing: good Special Tests: Mobility Limitations Standardized Measure [facility] AM-PAC 6 clicks Basic Mobility Inpatient Short Form: Raw Score: 23 Standardized Score: 11% impairment 4-Position Balance Test: 4/4 Small SARAH: 10 seconds Partial Tandem: 10 seconds Full Tandem: 10 seconds Single Leg Stance: 10 seconds Visual tracking is normal Cori of LEs normal Fine motor intact Informed Consent/Education: Patient instructed in purpose of PT consult and plan of care. Treatment: Initial Evaluation (43872) Therapeutic Activities (50463): instructed in log rolling for bed mobility instructed in avoidance of lifting, pushing/pulling, or reaching overhead for protection of fx sites discussed use of AD at length; recommend use of trekking poles as she resumes outdoor walking at home, progressing away from these as she feels comfortable Assessment: Patient is a 73 year old female referred to physical therapy services for safety consultation after suffering a fall resulting in fractures of sternum and T2. Patient is very active at baseline, and presents with mobility impairments related to recent trauma. She is safe for d/c home once medically stable, however will benefit from PT intervention during her acute care stay to continue patient education and gradual return to activity to maximize mobility. Recommend outpatient PT upon discharge. She currently demonstrates the following impairment level findings: 1. decreased UE ROM 2. decreased cervical ROM 3. pain from recent trauma 4. decreased UE strength 5. gait impairments Impairments are contributing to the following functional limitations: 1. gait impairments 2. decreased activity tolerance 3. modified bed mobility Patient is assessed as a Low 13353 complexity based on the following: History: As above Examination: functional limitations as above Presentation: evolving Decision Making: low Goals: Goals X1 week 1. Supine-Sit : supervision 2. Sit-Supine : supervision 3. Sit-Stand : supervision 4. Stand-Sit : supervision 5. Bed-Chair : supervision 6. Chair-Bed : supervision 7. Gait : supervision x 150', no device Plan of Care/Treatment Plan: 1-2x/day, 7 days/week x 1 week. Plan of care has been reviewed with the TRANSPORTATION COORDINATOR providing the service under Physical Therapy direction. Initiate Physical Therapy intervention for strengthening, bed mobility, transfers, gait, stairs, balance training, use of assistive device. DISCHARGE RECOMMENDATIONS: Home with outpatient PT TREATMENT CODE/TIME: [id number] (40487, 14054) Carol Stiles, PT, DPT [facility] Please sign an return this page within 30 days if you agree with the above POC. Thank you! Physician Signature Date [facility] All Active Problems CHI (closed head injury) (Acute) Sternal fracture (Acute) Contusion of multiple sites (Acute) Laceration of forehead (Acute) Fall (Acute) Kd type 2a hyperlipoproteinemia (Acute) Arthritis of gnllmw-fcloamfyd-kplzahjut joint (Acute) Anxiety and depression (Chronic) Osteoporosis (Chronic 12/08/12) T -2.4 spine in [place]; -2.9 in 2016 Osteoarthritis (Chronic 12/08/12) Neck pain (Chronic 07/19/14) c spine DJD Gastroesophageal reflux disease (Chronic 04/20/17) CKD (chronic kidney disease) stage 3, GFR 30-59 ml/min (Acute) felt to be due to NSAIDs. Hyperlipidemia (Chronic) high HDL Medical History Hx of angina pectoris per pt. states was r/u at cardiac, but was stress related. Lung nodule seen on imaging study Incidental finding during thoracic CT for assessment of CP on 02/08/20: 0.7 cm nodule along the left major fissure likely reflecting an intrapulmonary lymph node. Stable on CT 09/2021. No further testing. 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 Uterine prolapse 04/2019 51 mm short stem Gellhorn placed 07/2019. [facility] [place] [facility] [place]. Surgery declined fenestrated cube pessary placed. Unable to tolerate the pessary well. Surgical History S/P total hip arthroplasty S/P appendectomy Hx of colonoscopy Closed fracture of right olecranon process (09/05/20) S/P ORIF: 09/09/2020 S/P rotator cuff repair
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
[2024-05-06] MEDS: Acetaminophen 325 MG TAB 650 MG PO ×2 (15:26→21:10)
[2024-05-06 17:43] LABS: Bilirubin Negative (Negative); Blood Trace-intact (Negative); Clarity Clear (Clear); Glucose Negative (Negative); Ketones Negative (Negative); Leukocyte Esterase Negative (Negative); Nitrite Negative (Negative); Urobilinogen 0.2 mg/dL (Up to 0.2)
[2024-05-06 17:59] LABS: Bacteria Negative HPF (Negative); C & S Indicated? No; Casts Negative LPF (Negative); Crystals Negative HPF (Negative); Epithelial Cells Rare HPF (Negative); Mucus Negative (Negative); RBC 0-2 HPF (0-2); WBC Negative HPF (0-5)
--- NOTE | 2024-05-06 21:04 | DI.VRAD_ITS ---
PROCEDURE INFORMATION: Exam: XR Right Hand Exam date and time: 05/06/2024 7:07 PM Age: 73 years old Clinical indication: Other: R/O metacarpal fracture TECHNIQUE: Imaging protocol: Radiologic exam of the right hand. Views: 3 or more views. COMPARISON: CR XR ELBOW RT COMPLETE 12/01/2020 1:31 PM FINDINGS: Bones/joints: No acute fracture or dislocation. The alignment is anatomic. There is periarticular sclerosis and joint space narrowing suggestive of osteoarthritic changes seen greatest at the scaphoid-trapezium articulation. Soft tissues: Normal. IMPRESSION: 1. No acute fracture or dislocation. 2. Degenerative changes as described. Dictated and Authenticated by: Devora Pabon MD. Ordering:PÉREZ Mena MD
[2024-05-06] MEDS: HYDROmorphone 2 MG/ML SYR 0.5 MG IVP (21:20)
[2024-05-06] MEDS: Patch Removal LIDOCAINE 1 EACH TP (22:10)
--- NOTE | 2024-05-07 | DI.CT_ITS ---
Exam(s) 3D RECON ON CT WORKSTATION EXAM: 3D RECON ON CT WORKSTATION CLINICAL HISTORY: left jaw pain/trauma TECHNIQUE: COMPARISON: CT CT HEAD CERVICAL SPINE WO from 05/06/2024 FINDINGS: There is no evidence of mandible fracture nor significant asymmetry of the temporomandibular joints. No incidental osseous lesions in the mandible evident. No significant periapical lucencies around t he teeth within the mandible. There is no evidence of orbital blowout fracture. Orbital globes and retro conal compartments appear unremarkable. Visualized paranasal sinuses are clear. Some deviation of the nasal septum is noted as well as the n perfecto septal spur on the right side but without evidence of nasal septal fracture. Mastoid air cells are clear. There is no fluid in the middle ear cavities evident. Mild irregularity of right-sided nasal bones but without an obvious acute fracture of the nasal bones . Hummel of the paranasal sinuses appear intact. No fluid levels noted therein. IMPRESSION: No facial fractures identified. Mandible appears intact, as per request.
[2024-05-07 06:44] LABS: HCT 32.8 % (36.0-46.0); HGB 10.9 g/dL (11.2-15.7); MCH 30.7 pg (27.0-33.0); MCHC 33.2 % (32.0-36.0); MCV 92 fL (80-95); MPV 9.7 fL (8.0-11.0); Platelet Count 217 10^3/uL (130-400); RBC 3.55 10^6/uL (3.93-5.22); RDW 12.5 % (11.7-14.6); RDW-SD 42.7 fL; WBC 5.16 10^3/uL (4.4-10.8)
[2024-05-07 07:01] LABS: Anion Gap 6.2 mmol/L (3-11); BUN 17 mg/dL (7-18); CO2 28.8 mmol/L (21.0-32.0); CREATININE 1.3 mg/dL (0.55-1.02); Calcium 8.3 mg/dL (8.5-10.1); Chloride 107 mmol/L (98-107); Estimated GFR 42.88 (mL/min/1.73m2); Glucose 89 mg/dL (74-106); Potassium 4.2 mmol/L (3.5-5.1); Sodium 142 mmol/L (136-145)
[2024-05-07 07:21] VITALS: BP 91/63; PULSE 59; RESP 15; TEMP 35.6; O2SAT 97
[2024-05-07] MEDS: Rosuvastatin 5 MG TAB PO (07:36)
[2024-05-07] MEDS: Alendronate 70 MG TAB PO (07:36)
[2024-05-07] MEDS: Calcium 600mg/Vit D 200U TAB 1 TAB PO (07:37)
[2024-05-07] MEDS: lamoTRIgine 100 MG TAB PO (07:37)
[2024-05-07] MEDS: Acetaminophen 325 MG TAB 650 MG PO (07:38)
[2024-05-07] MEDS: Psyllium PKT 1 EACH PO (07:38)
[2024-05-07] MEDS: Normal Saline Flush 10 ML SYR IVP ×3 (07:39→20:41)
--- NOTE | 2024-05-07 09:42 | PT.INTREAT ---
PT Notes Visit Reasons: Sternal Fracture Date: 05/07/24 Precautions: standard SUBJECTIVE: Pt in bed when approached for therapy this morning. agreed to participating with therapy session. OBJECTIVE: Bruising on forehead, lips, tongue, arms and thoracic area. Pt reports feeling very dizzy on position change, with pt recovering from dizziness after staying in position for 3 to 5mins, pt also reports having double vision on position change with pt recovering after staying put for a minute or so.? PAIN: Pt reports feeling sore all over. ? BED MOBILITY/TRANSFERS? Supine-sit: SBA ? Sit-supine: SBA ? Sit-stand: CGA (due to patient's report of dizziness)? Stand-sit: CGA (due to patient's report of dizziness)? Bed-Chair: CGA (due to patient's report of dizziness)? Chair-bed:CGA (due to patient's report of dizziness)? GAIT? Assistive Device: No AD ? Weight bearing: Full Assist: CGA ? Distance:? 300'x2 with pt taking seated rest break in between distances ? Deviation: Narrow step width, low step height, short step length, ? ASSESSMENT:? pt reported her Hx and reports she doesn't remember her fall, pt reports she has to tell this therapist her story to allow her to recall the time of incident. pt was given enough time to express herself and was still not able to recall details from the event leading to her injury. pt able to tolerate gait training without increased thoracic pain. pt able to go back in bed and be situated in a safe position before conclusion of session. Plan: progression toward baseline level of function. TREATMENT CODE/TIME:[id number], [id number] 40minutes (8:55-9:35am)
[2024-05-07] MEDS: buPROPion-XL 150 MG TABCR 300 MG PO (10:25)
[2024-05-07] MEDS: Lidocaine 5% Patch 1 PATCH TP (10:26)
[2024-05-07] MEDS: Heparin 5,000 UNITS/ML VIAL 5000 UNITS SC ×2 (10:28→22:15)
[2024-05-07 11:14] VITALS: BP 104/67; PULSE 68; RESP 14; TEMP 36.1; O2SAT 96
[2024-05-07] MEDS: Ketorolac 15 MG/ML VIAL IVP (11:22)
--- NOTE | 2024-05-07 13:39 | PGE_ITS ---
Date of Service Date of service: 05/07/24 Time of Service: 13:39 Assessment and Plan Assessment and plan (1) Anxiety and depression: Status: Chronic (2) Hyperlipidemia: Status: Chronic Qualifiers: Hyperlipidemia type: other hyperlipidemia Qualified Code(s): E78.49 - Other hyperlipidemia (3) Osteoporosis: Status: Chronic Qualifiers: Osteoporosis type: unspecified Presence of current pathological fracture: without current pathological fracture Qualified Code(s): M81.0 - Age- related osteoporosis without current pathological fracture (4) Gastroesophageal reflux disease: Status: Chronic Qualifiers: Esophagitis presence: esophagitis presence not specified Qualified Code(s): K21.9 - Gastro-esophageal reflux disease without esophagitis (5) CKD (chronic kidney disease) stage 3, GFR 30-59 ml/min: Status: Acute Qualifiers: Chronic kidney disease stage 3 subtype: stage 3a (GFR 45-59) Qualified Code(s): N18.31 - Chronic kidney disease, stage 3a (6) Sternal fracture: Status: Acute Assessment and plan: - Patient thinks she fell down the stairs and struck an iron gate (7) Osteoarthritis: Status: Chronic Qualifiers: Osteoarthritis location: unspecified site Osteoarthritis type: primary Qualified Code(s): M19.91 - Primary osteoarthritis, unspecified site (8) Laceration of forehead: Status: Acute Assessment and plan: Repaired in ER (9) Fall: Status: Acute Assessment and plan: Questionable etiology (10) Contusion of multiple sites: Status: Acute (11) CHI (closed head injury): Status: Acute (12) Strabismus: Status: Acute Assessment and plan: Questionable new onset (13) Brain concussion: Status: Acute (14) Postural dizziness: Status: Acute Assessment and plan: - Given the patient's multiple falls as of recent, concussion, and nonspecific neurofindings, I do think we should do some MRIs of her brain to ensure that there is no organic brain disorder. I did review her case with Dr. Jasmine and we both agree that there is something that is off. CT of head/neck/facial bones was all negative except for minimal T2 endplate less than 10% fracture and sternal fracture. Teleneuro consult for the morning Multimodality pain plan. Pain meds are adjusted. Patient has taken tramadol in the past and has tolerated it well. She does not tolerate oxycodone. She had a hard time sleeping last night. We will add in gabapentin at bedtime. She has taken gabapentin in the past. She has taken melatonin in the past and she did not like the way this made her feel. I am concerned that the gabapentin could cause increase in her dizziness. -Have nursing continue to monitor her neurostatus Continue PT. She is not currently stable to go home I did review the case with pharmacy and Dr. Jasmine This document was created with voice activated software and may contain errors. 40 mins spent in direct pt care and 45 in non face to face time (15) Double vision: Status: Acute Assessment and plan: Patient is noted that this is improved when she puts her glasses on (16) Osteoarthritis of hands, bilateral: Status: Acute (17) Jaw pain, non-TMJ: Status: Acute (18) Syncope: Status: Chronic Qualifiers: Syncope type: unspecified Qualified Code(s): R55 - Syncope and collapse Subjective Subjective Interval history since last seen: Patient has a T2 endplate fracture and a nondisplaced sternal fracture from fall at home. Notes from PT reviewed. Patient not stable to go home today. Patient is still having confusion Patient is complaining of left jaw pain. She complains of pain with flexion of extension of the C-spine. She complains of dizziness and double vision. She denies any pain in her eyes. She also has a hematoma on her tongue which makes it difficult to eat or talk. She has hematoma on the back of her right hand which makes it difficult to use her hand. She denies any numbness or weakness in her arms legs hands or feet. See notes from PT. She denies any loss of bowel or bladder control during the event. She has not had any loss of bowel or bladder control today. She denies any abdominal pain. She has been able to eat. She notes chest pain when she takes in a deep breath. Patient has had 2 falls in the past week. She struck her head both times and was knocked out for some length of time. This past fall she thinks it was because she slipped on the stairs and fell. She is missing 3 of 4 hours. She was still confused for several hours following the fall. She has had multiple falls this year including a slip and fall in September where she broke her arm. Per the patient there is always been a reason why she has had a slip and fall fall in September she was trying to get a better picture and slipped on some ice. The fall 2 weeks ago she tripped on a dog toy in the kitchen. This fall she thinks she fell because the staircase was slippery. She denies any weakness in her extremities. She did not lose bowel or bowel bladder control. She has no history of heart attack or stroke. She has no history of seizures. There is no family history of seizures. The patient has no other family with her today. As far as the patient knows she has had no aphasia or weight loss. Exam Const General: cooperative, well developed and in distress mild Nutritional Appearance: average body habitus Orientation: alert, awake, oriented to person, oriented to place, oriented to time and confused HENKY Head: no palpable skull fracture, no Jones's sign, contusion (Left temporal parietal region/left eyebrow region/occipital region), no lacerations, no palp able skull fracture and no temporal artery tenderness Ears: hearing grossly normal bilaterally and external ears normal General nose exam: external nose normal Face and sinus: face symmetric, abrasion, no crepitus and ecchymosis Mouth: oral mucosae normal and tongue abnormal (Hematoma) Teeth and gingiva: dentition normal Eyes Alignment and Position: alignment abnormal left (Strabismus) Periorbital: periorbital findings abnormal left periorbital swelling, periorbital tenderness and periorbital ecchymosis Eyelids: eyelids normal Sclera: sclerae normal Pupils: PERRL EOM: EOM intact bilaterally Other: Patient complains of double vision and blurry vision. No eye pain. Pupils are equal and reactive. Extraocular muscles move appropriately left eye appears to have strabismus Neck Neck: normal visual inspection, full ROM, no anterior neck swelling, no midline deformity and tender (With flexion and extension) Chest Other: Pain over the sternum Resp Effort & Inspection: normal respiratory effort and able to speak in complete sentences Auscultation: clear to auscultation bilaterally Cardio Rate: regular rate Rhythm: regular rhythm GI Palpation: soft Auscultation: normal bowel sounds Other: Negative hip rock Neuro General: patient alert, patient awake, oriented, gait abnormal, focal motor deficits present and CN's II-XI intact bilaterally Cranial Nerves: CN's II-XI intact bilaterally, sense of smell intact, PERRL, EOM intact bilaterally, no nystagmus, facial strength normal, tongue midline, hearing normal and able to rotate head bilaterally Cognition: abnormal cognition Speech: abnormal speech (Slow and flat) Motor: muscle tone normal throughout Sensory Exam: no sensory deficits noted Extrem General: normal to inspection (Complains of pain right shoulder with movement as well as right hand), full ROM and no clubbing, cyanosis or edema Other: Abrasion right thigh Objective Last Vital Signs Temp 36.1 C L 05/07/24 11:14 Pulse 68 05/07/24 11:14 Resp 14 05/07/24 11:14 BP 104/67 05/07/24 11:14 Pulse Ox 96 05/07/24 11:14 Laboratory Results - last 24 hr 05/06/24 05/06/24 05/07/24 17:30 18:08 06:00 WBC Cancelled RBC Hgb Hct MCV MCH MCHC RDW Plt Count MPV Sodium Potassium Chloride Carbon Dioxide Anion Gap BUN Creatinine Est GFR (CKD-EPI 2020) Glucose Calcium Urine Color Yellow Cancelled Urine Clarity Clear Cancelled Urine pH 7.0 Cancelled Ur Specific [place] 1.010 Cancelled Urine Protein Negative Cancelled Urine Ketones Negative Cancelled Urine Blood Trace-intact H Cancelled Urine Nitrite Negative Cancelled Urine Bilirubin Negative Cancelled Urine Urobilinogen 0.2 Cancelled Ur Leukocyte Esterase Negative Cancelled Urine RBC 0-2 Urine WBC Negative Ur Epithelial Cells Rare Urine Crystals Negative Urine Bacteria Negative Urine Casts Negative Urine Mucus Negative Ur Culture Indicated? No Urine Glucose Negative Cancelled 05/07/24 05/07/24 05/07/24 06:00 06:00 06:00 WBC 5.16 RBC Cancelled 3.55 L Hgb Cancelled 10.9 L Hct Cancelled MCV MCH MCHC RDW Plt Count MPV Sodium Potassium Chloride Carbon Dioxide Anion Gap BUN Creatinine Est GFR (CKD-EPI 2020) Glucose Calcium Urine Color Urine Clarity Urine pH Ur Specific [place] Urine Protein Urine Ketones Urine Blood Urine Nitrite Urine Bilirubin Urine Urobilinogen Ur Leukocyte Esterase Urine RBC Urine WBC Ur Epithelial Cells Urine Crystals Urine Bacteria Urine Casts Urine Mucus Ur Culture Indicated? Urine Glucose 05/07/24 05/07/24 05/07/24 06:00 06:00 06:00 WBC RBC Hgb Hct 32.8 L MCV Cancelled 92 MCH Cancelled 30.7 MCHC Cancelled RDW Plt Count MPV Sodium Potassium Chloride Carbon Dioxide Anion Gap BUN Creatinine Est GFR (CKD-EPI 2020) Glucose Calcium Urine Color Urine Clarity Urine pH Ur Specific [place] Urine Protein Urine Ketones Urine Blood Urine Nitrite Urine Bilirubin Urine Urobilinogen Ur Leukocyte Esterase Urine RBC Urine WBC Ur Epithelial Cells Urine Crystals Urine Bacteria Urine Casts Urine Mucus Ur Culture Indicated? Urine Glucose 05/07/24 05/07/24 05/07/24 06:00 06:00 06:00 WBC RBC Hgb Hct MCV MCH MCHC 33.2 RDW Cancelled 12.5 Plt Count Cancelled 217 MPV Cancelled Sodium Potassium Chloride Carbon Dioxide Anion Gap BUN Creatinine Est GFR (CKD-EPI 2020) Glucose Calcium Urine Color Urine Clarity Urine pH Ur Specific [place] Urine Protein Urine Ketones Urine Blood Urine Nitrite Urine Bilirubin Urine Urobilinogen Ur Leukocyte Esterase Urine RBC Urine WBC Ur Epithelial Cells Urine Crystals Urine Bacteria Urine Casts Urine Mucus Ur Culture Indicated? Urine Glucose 05/07/24 06:00 WBC RBC Hgb Hct MCV MCH MCHC RDW Plt Count MPV 9.7 Sodium 142 Potassium 4.2 Chloride 107 Carbon Dioxide 28.8 Anion Gap 6.2 BUN 17 Creatinine 1.3 H Est GFR (CKD-EPI 2020) 42.88 Glucose 89 Calcium 8.3 L Urine Color Urine Clarity Urine pH Ur Specific [place] Urine Protein Urine Ketones Urine Blood Urine Nitrite Urine Bilirubin Urine Urobilinogen Ur Leukocyte Esterase Urine RBC Urine WBC Ur Epithelial Cells Urine Crystals Urine Bacteria Urine Casts Urine Mucus Ur Culture Indicated? Urine Glucose Time Spent with Patient Time Spent with Patient: >50 minutes Time was spent: preparing to see the patient(eg.review tests), obtaining and/or reviewing separately otained hiistory, ordering medications,tests, procedures, referring, communicating with other health intensive care medicine specialist, indepentently interpreting results, counseling the patient, care coordination and other
[2024-05-07 15:07] VITALS: BP 110/66; BP 121/65; BP 122/73; PULSE 69; PULSE 72; PULSE 79
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
[2024-05-07 15:50] LABS: Lab Add On Test DONE
[2024-05-07 16:08] LABS: GGT 9 U/L (5-55)
[2024-05-07 19:34] VITALS: BP 99/74; PULSE 69; RESP 15; TEMP 36.2; O2SAT 96
[2024-05-07] MEDS: Gabapentin 100 MG CAP PO (20:40)
[2024-05-07] MEDS: Acetaminophen 500 MG TAB 1000 MG PO (20:40)
[2024-05-07] MEDS: Docusate Sodium 100 MG CAP PO (20:40)
[2024-05-07] MEDS: Patch Removal LIDOCAINE 1 EACH TP (21:22)
[2024-05-07] MEDS: Melatonin 3 MG TAB 6 MG PO (22:39)
[2024-05-07 23:00] VITALS: BP 108/71; PULSE 66; RESP 15; TEMP 36.8; O2SAT 97
[2024-05-08] MEDS: Acetaminophen 500 MG TAB 1000 MG PO ×2 (05:26→21:06)
[2024-05-08 07:35] VITALS: BP 98/67; PULSE 66; RESP 18; TEMP 36.3; O2SAT 97
[2024-05-08] MEDS: LORazepam 0.5 MG TAB PO ×2 (07:42→13:09)
[2024-05-08] MEDS: Normal Saline Flush 10 ML SYR IVP ×2 (07:55→21:16)
[2024-05-08] MEDS: Psyllium PKT 1 EACH PO (07:55)
[2024-05-08] MEDS: buPROPion-XL 150 MG TABCR 300 MG PO (07:56)
[2024-05-08] MEDS: lamoTRIgine 100 MG TAB PO (07:56)
[2024-05-08] MEDS: Docusate Sodium 100 MG CAP PO ×2 (07:56→21:05)
--- NOTE | 2024-05-08 09:46 | PGE_ITS ---
Date of Service Date of service: 05/08/24 Time of Service: 09:47 Assessment and Plan Assessment and plan (1) Syncope: Status: Chronic Assessment and plan: -concern for neurologic cause of syncope given the history and her persistent neurologic findings of left eye muscle weakness and slight ptosis along with ataxia. -Vertebrobasilar stroke is in ddx; MRI/MRA 05/08; results pending -given previous trauma to the back of the head and reported tongue bitting, also concern for seizure -EKG reassuring, not orthostatic. -TTE ordered for 05/08, will f/u results -continue telemetry monitoring. -continue statin for now, hold off on antiplatelet agent -EEG ordered, will f/u results -PT consultion; appreciate recs Qualifiers: Syncope type: unspecified Qualified Code(s): R55 - Syncope and collapse (2) CKD (chronic kidney disease) stage 3, GFR 30-59 ml/min: Status: Acute Assessment and plan: at baseline eGFR Qualifiers: Chronic kidney disease stage 3 subtype: stage 3a (GFR 45-59) Qualified Code(s): N18.31 - Chronic kidney disease, stage 3a (3) Hyperlipidemia: Status: Chronic Assessment and plan: Continue rosuvastatin as above. Qualifiers: Hyperlipidemia type: other hyperlipidemia Qualified Code(s): E78.49 - Other hyperlipidemia Subjective Subjective Interval history since last seen: Patient states that she is feeling well today. She understands the plan to have MRI and EEG today. Otherwise she has no complaints or concerns at this time. Exam Narrative Exam Narrative: well appearing female sitting up in the chair in no acute distress, AOx4, heart RRR, lungs CTAB, abdomen soft, non-tender, non-distended, diffuse swelling to right hand, sutured laceration over left forehead, PERRLA, EOMInorma strength and sensation in bilateral upper and lower extremities Objective Last Vital Signs Temp 97.3 F L 05/08/24 07:35 Pulse 66 05/08/24 07:35 Resp 18 05/08/24 07:35 BP 98/67 L 05/08/24 07:35 Pulse Ox 97 05/08/24 07:35 Laboratory Results - last 24 hr 05/07/24 06:00 GGT 9 Add-On Test Request DONE Time Spent with Patient Time Spent with Patient: >50 minutes Time was spent: preparing to see the patient(eg.review tests), obtaining and/or reviewing separately otained hiistory, ordering medications,tests, procedures, referring, communicating with other health health care sanitary technician, indepentently interpreting results, counseling the patient and care coordination
[2024-05-08] MEDS: Heparin 5,000 UNITS/ML VIAL 5000 UNITS SC ×2 (10:20→21:08)
[2024-05-08] MEDS: Lidocaine 5% Patch 1 PATCH TP (10:20)
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
--- NOTE | 2024-05-08 13:40 | PTTR_ITS ---
PT Notes Visit Reasons: Sternal Fracture Date: 05/08/2024 Precautions: standard SUBJECTIVE: Pt seated in chair awaiting MRI this afternoon.Pt agreed to participating with therapy session. OBJECTIVE: Bruising on forehead, lips, tongue, arms and thoracic area. Pt reports having double vision today only when attempting to look at items close to her such as paper or phone. Pt noted new pain this morning pointing to her right SI joint. PAIN: Its sore pt reports 3 on 1-10 scale right SI joint with WB and without WB ? BED MOBILITY/TRANSFERS? Supine-sit: SBA ? Sit-supine: SBA ? Sit-stand: CGA (due to patient's report of dizziness)?second session SBA no reports of dizziness ?Stand-sit: CGA (due to patient's report of dizziness)? ?second session SBA no reports of dizziness ?Bed- Chair: CGA (due to patient's report of dizziness)? ? second session SBA no reports of dizziness ? Chair- bed:CGA (due to patient's report of dizziness)? ? ?second session SBA no reports of dizziness ? GAIT? Assistive Device: No AD ?, SBA with FWW ? Weight bearing: Full Assist: CGA ? Distance:? 300'x2 with pt taking seated rest break in between distances ; 2nd session 35 feet x 4 to simulate functional mobility within home without assistive device CGA? Deviation: Narrow step width, low step height, short step length,without AD, with FWW increased step length, step height and continues with NBOS ? ASSESSMENT:?Pt able to increase step length waith use of FWW. She reports no pain with advancing FWW and reports increase security /stability when she walks with it. She reports for shorter distances she feels confident without the FWW. She demonstrates impaired hip ROM Left ER> Right ER. Plan: progression toward baseline level of function. TREATMENT CODE/TIME:[id number], 30minutes ([id number]) [id number] 20 minutes ([id number])
--- NOTE | 2024-05-08 13:45 | DI.MRI_ITS ---
Exam(s) MR BRAIN WO EXAM: MR BRAIN WO CLINICAL HISTORY: falls/syncope/dizziness/double vision TECHNIQUE: Multiplanar multisequence MRI of the brain was performed. COMPARISON: CT CT HEAD CERVICAL SPINE WO from 05/06/[address]D RECON ON CT WORKSTATION from 05/06/2024 FINDINGS: VENTRICLES AND EXTRA AXIAL SPACES: Normal in size and morphology for the patient's age. MIDLINE SHIFT: None. CEREBRAL PARENCHYMA: No focus of restricted diffusion to suggest acute infarct. No space-occupying le yobani identified. There are few scattered areas of hyperintense signal seen in the white matter most c onsistent with chronic microvascular ischemic disease. There is a benign-appearing cyst in the right lentiform nucleus. HEMORRHAGE: None. BRAINSTEM/CEREBELLUM: Normal. CALVARIUM: Normal. VISUALIZED PARANASAL SINUSES/MASTOIDS:Clear. CH[place]HA OF [place]: Normal flow void. PITUITARY GLAND: Unremarkable. OTHER FINDINGS: None. IMPRESSION: 1. No acute intracranial process. No evidence of an acute infarct. 2. Few scattered areas of hyperintense signal seen in the white matter likely reflecting chronic micr ovascular ischemic disease. DATA REPOSITORY:
--- NOTE | 2024-05-08 14:05 | DI.MRI_ITS ---
Exam(s) MR ANGIO BRAIN WO CLINICAL HISTORY: diploplia, ptosis, ataxia, vertebrobasilar artery?. TECHNIQUE: Multiplanar multisequence MRA of the brain was performed. COMPARISON: MR MR BRAIN WO from 05/08/2024 FINDINGS: Carotid Arteries: No aneurysm, occlusion or significant stenosis. Anterior Cerebral Arteries: Right: No aneurysm, occlusion or significant stenosis. Left: No aneurysm, occlusion or significant stenosis. Middle Cerebral Arteries: Right: No aneurysm, occlusion or significant stenosis. Left: No aneurysm, occlusion or significant stenosis. Posterior Cerebral Arteries: Right: No aneurysm, occlusion or significant stenosis. Left: No aneurysm, occlusion or significant stenosis. Vertebral Arteries: Right: No aneurysm, occlusion or significant stenosis. Left: No aneurysm, occlusion or significant stenosis. Basilar Artery: No aneurysm, occlusion or significant stenosis. IMPRESSION: Normal MRA examination of the [place]. DATA REPOSITORY:
--- NOTE | 2024-05-08 14:12 | DI.MRI_ITS ---
Exam(s) MR ANGIO NECK WO EXAM: MR ANGIO NECK WO CLINICAL HISTORY: multiple falls/syncope/smoker. TECHNIQUE: Multiplanar multisequence MRA of the Neck was performed. COMPARISON: No exams were available for comparison FINDINGS: Common Carotid: Right: No dissection, occlusion or significant stenosis. Left: No dissection, occlusion or significant stenosis. External Carotid: Right: No evidence of occlusion or significant stenosis. Left: No evidence of occlusion or significant stenosis. Internal Carotid: Right: No dissection, occlusion or significant stenosis. Left: No dissection, occlusion or significant stenosis. Vertebral Artery: Right: No dissection, occlusion or significant stenosis. Left: No dissection, occlusion or significant stenosis. IMPRESSION: No evidence of dissection, occlusion or significant stenosis. DATA REPOSITORY:
--- NOTE | 2024-05-08 17:18 | PDOC.EEG_ITS ---
Neurology EEG EEG: [facility] Department of Neurology INPATIENT EEG REPORT Date of Recordin05/08/24 Interpreting Physician: Dr. Lilia Russell Reason for study: Ms. Kruger is a 73 year-old admitted with syncopal vs seizure spells. Current Medications: Current Medications Acetaminophen (Acetaminophen 500 Mg Tab) 1,000 mg PO Q6H PRN PRN Last Admin: 05/08/24 05:26 Dose: 1,000 mg Bupropion HCl (Bupropion-Xl 150 Mg Tabcr) 300 mg PO DAILY [facility] Last Admin: 05/08/24 07:56 Dose: 300 mg Docusate Sodium (Docusate Sodium 100 Mg Cap) 100 mg PO BID [facility] Last Admin: 05/08/24 07:56 Dose: 100 mg Gabapentin (Gabapentin 100 Mg Cap) 100 mg PO HS [facility] Last Admin: 05/07/24 20:40 Dose: 100 mg Heparin Sodium (Porcine) (Heparin 5,000 Units/Ml Vial) 5,000 units SC Q12H [facility] Last Admin: 05/08/24 10:20 Dose: 5,000 units Hydromorphone HCl (Hydromorphone 2 Mg/Ml Syr) 0.5 mg IVP Q6H PRN PRN Last Admin: 05/06/24 21:20 Dose: 0.5 mg IV Miscellaneous Supplies (Iv Access) 1 each IV DIRECTED [facility] Lamotrigine (Lamotrigine 100 Mg Tab) 100 mg PO DAILY [facility] Last Admin: 05/08/24 07:56 Dose: 100 mg Lidocaine (Lidocaine 5% Patch) 1 patch TP Q24H [facility] Last Admin: 05/08/24 10:20 Dose: 1 patch Melatonin (Melatonin 3 Mg Tab) 6 mg PO [facility] Miscellaneous (Patch Removal Lidocaine) 1 each TP Q24H [facility] Last Admin: 05/07/24 21:22 Dose: 1 each Ondansetron HCl (Ondansetron 4 Mg/2 Ml Vial) 4 mg IVP Q4H PRN PRN Psyllium Hydrophilic Mucilloid (Psyllium Pkt) 1 each PO DAILY [facility] Last Admin: 05/08/24 07:55 Dose: 1 each Sodium Chloride (Normal Saline Flush 10 Ml Syr) 0 ml IVP PRN PRN Last Admin: 05/07/24 11:22 Dose: 10 ml Sodium Chloride (Normal Saline Flush 10 Ml Syr) 0 ml IVP BID [facility] Last Admin: 05/08/24 07:55 Dose: 10 ml Sodium Chloride (Normal Saline 10 Ml Vial) 0 ml IJ DIRECTED PRN Tramadol HCl (Tramadol 50 Mg Tab) 50 mg PO Q6H PRN PRN METHODS: A 21 channel digitized electroencephalogram was performed in the [facility] Med/Surg Floor or ICU. The 10/20 international system of electrode placement was used and bipolar and referential electrode montages were recorded. In addition to EEG the patient was monitored for EKG and lateral/vertical eye movements. Activation procedures of photic stimulation and hyperventilation were performed if applicable. Video was used during activation procedures and during events where applicable. The duration of the recording was 30 minutes. DESCRIPTION OF EEG: The patient was noted to be awake, drowsy, and asleep during the recording. During maximal wakefulness a 9-Hz posterior background rhythm was present which was well-modulated, symmetrical, reactive to eye opening, and of moderate voltage. With eye opening the background activity changed to a low voltage mixture of alpha, beta, and occasional theta range frequencies. Faster frequencies were present in the bilateral anterior head regions. There was a normal anterior-posterior voltage gradient. During drowsiness, there was attenuation of the posterior dominant background rhythm and vertex waves. Stage II sleep was present with symmetrical sleep spindles, K-complexes, and vertex waves. Activating Procedures: Photic stimulation was performed which produced a symmetrical posterior driving response at various flash frequencies. Hyperventilation was not performed. EKG: EKG revealed normal sinus rhythm. INTERPRETATION: This EEG is normal during the awake and sleep states as well as during photic stimulation. PRIOR EEG: none CLINICAL CORRELATION: No focal regions of cerebral dysfunction or epileptiform activity was present. Epilepsy remains a clinical diagnosis and a normal EEG does not rule out epilepsy. Clinical correlation is advised. Lilia Russell MD Date of service: 05/08/24
[2024-05-08 17:25] VITALS: BP 110/93; PULSE 71; RESP 18; TEMP 37; O2SAT 98
--- NOTE | 2024-05-08 17:45 | W.PM.PROGNOT ---
Date of Service Date of service: 05/08/24 Time of Service: 17:45 Assessment and Plan Assessment and plan (1) Syncope: Status: Chronic Assessment and plan: MRI and MRA were negative today. Telehealth consult with the neurologist was unrevealing. She is undergoing EEG this afternoon. We can see what the results of the EEG are overnight, but assuming she continues on this trajectory, I would anticipate discharge home tomorrow Qualifiers: Syncope type: unspecified Qualified Code(s): R55 - Syncope and collapse Subjective Subjective Interval history since last seen: Mony feels like she is made some improvement today. She feels more herself. Exam Neuro Other: She is more awake and Objective Last Vital Signs Temp 98.6 F 05/08/24 17:25 Pulse 71 05/08/24 17:25 Resp 18 05/08/24 17:25 BP 110/93 H 05/08/24 17:25 Pulse Ox 98 05/08/24 17:25 Time Spent with Patient Time Spent with Patient: 25-34 minutes Time was spent: preparing to see the patient(eg.review tests), indepentently interpreting results, counseling the patient and care coordination
--- NOTE | 2024-05-08 18:08 | CHAPLAIN ---
Jennie was sitting up in a chair when I visited. She was very pleasant and easily engaged in a conversation. She told me that she fell downstairs at home, cutting her forehead causing a sternal fracture which has been painful, especailly when she had the hiccups earlier. Jennie said she remembers talking on the phone to a friend, but does not remember the end of the conversation, or falling down the stairs. Her dog, April, stayed with her heard April whimpering when he came home. Jennie shared some personal history, telling me about April and other pets she's had in the past. She's lived in [place], [place] and [place] prior to living her. She shared a comforting experience she had with a biological science technician when her daughter was born. For several years she attended the [employer] in [place], and knows Rev. Jess Grant who was the digital product specialist there previously. She has not attended in several years. She is waiting for various test results before she'll be discharged.
[2024-05-08 19:40] VITALS: BP 104/61; PULSE 79; RESP 17; TEMP 37; O2SAT 98
[2024-05-08] MEDS: Gabapentin 100 MG CAP PO (21:05)
[2024-05-08] MEDS: Melatonin 3 MG TAB 6 MG PO (21:06)
[2024-05-08] MEDS: Patch Removal LIDOCAINE 1 EACH TP (21:16)
[2024-05-09] MEDS: Acetaminophen 500 MG TAB 1000 MG PO (07:19)
[2024-05-09 07:32] VITALS: BP 110/78; PULSE 68; RESP 17; TEMP 36.8; O2SAT 98
[2024-05-09] MEDS: lamoTRIgine 100 MG TAB PO (08:28)
[2024-05-09] MEDS: Lidocaine 5% Patch 1 PATCH TP (08:28)
[2024-05-09] MEDS: Heparin 5,000 UNITS/ML VIAL 5000 UNITS SC (08:28)
[2024-05-09] MEDS: Docusate Sodium 100 MG CAP PO (08:28)
[2024-05-09] MEDS: buPROPion-XL 150 MG TABCR 300 MG PO (08:28)
[2024-05-09] MEDS: Psyllium PKT 1 EACH PO (08:29)
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
[2024-05-09] MEDS: Normal Saline Flush 10 ML SYR IVP (08:54)
--- NOTE | 2024-05-09 10:27 | W.PM.PROGNOT ---
Date of Service Date of service: 05/09/24 Time of Service: 10:27 Assessment and Plan Assessment and plan (1) Syncope: Status: Chronic Assessment and plan: MRI and MRA were negative. EEG was also negative. D/C home today with referral's to follow up with her PCP and to participate in out patient PT. Qualifiers: Syncope type: unspecified Qualified Code(s): R55 - Syncope and collapse Subjective Subjective Interval history since last seen: Arrive with Jennie reporting she is feeling well. She was able to perform her ADLs this morning independently. She states her upper lip feels more swollen today, but otherwise is doing well. She denies any dizziness, nausea or vomiting this morning. Exam Const General: cooperative, healthy appearing and comfortable Orientation: alert and oriented x3 HENMT Other: Upper Lip is swollen. External abrasion is scabbed over. internal abrasion is noted. Upper lip is tender to palpation. Resp Effort & Inspection: normal respiratory effort, no audible wheezes and no cough Objective Last Vital Signs Temp 36.8 C 05/09/24 07:32 Pulse 68 05/09/24 07:32 Resp 17 05/09/24 07:32 BP 110/78 05/09/24 07:32 Pulse Ox 98 05/09/24 07:32 Time Spent with Patient Time Spent with Patient: <25 minutes Time was spent: preparing to see the patient(eg.review tests), obtaining and/or reviewing separately otained hiistory and counseling the patient
--- NOTE | 2024-05-09 12:20 | PT.INTREAT ---
PT Notes Visit Reasons: Sternal Fracture Date: 05/09/2024 Precautions: standard SUBJECTIVE: Pt patient reports she is going home today. I am seeing 3 of things at times especially when trying to read. Patient reports less discomfort in the right SI and lateral hip today as compared to yesterday OBJECTIVE: Bruising on forehead, lips, tongue, arms and thoracic area. Pt reports she is continuing to have visual impairments including at the distance. PAIN: 2 on 0-10 scale right SI hip area; sternum 4/10 ? BED MOBILITY/TRANSFERS? Supine-sit: Independent ? Sit-supine: Independent? Sit-stand: Independent stand-sit: Independent Bed-Chair: CGA (independent chair-bed:CGA independent ? GAIT? Assistive Device: No AD ? Weight bearing: Full Assist: Independent ? Distance:? 300'x1 with pt taking seated rest break in between distances ; ? Deviation: Narrow step width, low step height, short step length,without AD, increased left knee flexion. Stairs: 12 with 1 rail CGA step to pattern ascending and descending ? ASSESSMENT:?Patient continues to demonstrate improved gait pattern and step length with use of FWW however she declines to utilize it for discharge to home. She demonstrates safe ambulation without device including turns small item transport retrieval. Plan:discharge to home with outpatient PT. TREATMENT CODE/TIME:[id number], 30minutes ([id number])
--- NOTE | 2024-05-09 17:48 | PDOC.CMDIS ---
Date of service: 05/09/24 Time of Service: 17:48 LACE Index Scoring Tool Questions: Length of Stay (in days): 3 Was the patient admitted via the E.D.?: Yes Comorbidities: Liver or Renal Disease E.D. Visits: 1 Answers: Total Score: 12 Risk of Readmission: High Risk Care Management Discharge Plan Reason for Hospitalization: closed head injury Discharge Plan: Jennie will be discharged home with new home health services for PT. She will follow up with her PCP and plan of care and transport with family. Patient/Family Education Needs: Review discharge instructions, activity, limitations, follow up plan and discuss Ask Me Three Services Needed at Discharge: Home Health Care Services SDOH Health Related Social Needs: No Data to Display
== END 2024-05-09 13:41 | disposition home or self-care (01) ==
LOC: ER 08:13 → MS 09:22
PROVIDERS: Surgery; Admitting Provider Surgery; Emergency Provider Emergency Medicine; PCP Family Medicine; Visit Provider Surgery
DX: S06.0X9A Concussion with loss of consciousness of unspecified duration, initial encounter (principal); S22.20XA Unspecified fracture of sternum, initial encounter for closed fracture; S22.021A Stable burst fracture of second thoracic vertebra, initial encounter for closed fracture; S00.532A Contusion of oral cavity, initial encounter; S02.85XA Fracture of orbit, unspecified, initial encounter for closed fracture; S60.221A Contusion of right hand, initial encounter; S70.311A Abrasion, right thigh, initial encounter; R55 Syncope and collapse; F32.A Depression, unspecified; N18.31 Chronic kidney disease, stage 3a; F41.9 Anxiety disorder, unspecified; M81.0 Age-related osteoporosis without current pathological fracture; K21.9 Gastro-esophageal reflux disease without esophagitis; M19.041 Primary osteoarthritis, right hand; M19.042 Primary osteoarthritis, left hand; R68.84 Jaw pain; W10.8XXA Fall (on) (from) other stairs and steps, initial encounter; W22.8XXA Striking against or struck by other objects, initial encounter; Z96.642 Presence of left artificial hip joint; E78.00 Pure hypercholesterolemia, unspecified; M47.812 Spondylosis without myelopathy or radiculopathy, cervical region; H53.2 Diplopia
CPT/HCPCS: 00123; 12011; 36415; 70544; 70547; 74177; 76376; 80048; 80053; 83690; 85027; 86850; 86900; 86901; 90714; 93005; 95819; 96361; 96365; 96366; 96367; 96372; 96375; 97116; 97161; 97530; 99222; 99231; 99233; 99238; 99291; 70450; 70551; 71260; 72125; 73090; 73130; 81003; 81015; 82977; 83735; 84484; 85025; 93010; G0378; J0131; J1170; J1644; J1885; J2004; J3475; J3490

== ENCOUNTER → 2024-05-08 08:00 | Outpatient (BNVA) | payer MEDICARE, BC, SELFPAY | PROVIDERS: PCP Family Medicine; Referring Provider Family Medicine; Visit Provider Psychiatry & Neurology Neurology ==

== ENCOUNTER → 2024-05-17 11:33 | Outpatient (BNVA) | payer MEDICARE, BC, SELFPAY | PROVIDERS: PCP Family Medicine; Referring Provider Family Medicine; Visit Provider Physical Therapy Assistant | DX: S01.81XD Laceration without foreign body of other part of head, subsequent encounter (principal); X58.XXXD Exposure to other specified factors, subsequent encounter; Z48.02 Encounter for removal of sutures ==

== ENCOUNTER → 2024-08-09 09:25 | Outpatient (BNVA) | payer MEDICARE, BC, SELFPAY | PROVIDERS: PCP Family Medicine; Referring Provider Family Medicine; Visit Provider Nurse Practitioner Adult Health | DX: R41.3 Other amnesia (principal); S06.0XAS Concussion with loss of consciousness status unknown, sequela | CPT/HCPCS: 99215 ==

== ENCOUNTER 2024-08-16 03:32 | Outpatient (CLI) | payer MEDICARE, BC, SELFPAY ==
[2024-08-16 09:44] LABS: Abs Immature Grans 0.02 10^3/uL (0.0-0.06); Absolute Basophil Count 0.08 10^3/uL (0.0-0.2); Absolute Eosinophil Count 0.19 10^3/uL (0.0-0.7); Absolute Lymphocyte Count 1.75 10^3/uL (1.2-3.4); Absolute Monocyte Count 0.38 10^3/uL (0.1-0.8); Absolute Neutrophil Count 2.56 10^3/uL (1.2-6.7); Basophils % 1.6 %; Eosinophils % 3.8 %; HCT 40.3 % (36.0-46.0); HGB 13.6 g/dL (11.2-15.7); Immature Grans % 0.4 %; Lymphocytes % 35.1 %; MCH 30.2 pg (27.0-33.0); MCHC 33.7 % (32.0-36.0); MCV 89 fL (80-95); MPV 9.5 fL (8.0-11.0); Monocytes % 7.6 %; Neutrophils % 51.5 %; Platelet Count 315 10^3/uL (130-400); RBC 4.51 10^6/uL (3.93-5.22); RDW 12.1 % (11.7-14.6); RDW-SD 39.3 fL; WBC 4.98 10^3/uL (4.4-10.8)
[2024-08-16 10:45] LABS: ALT 23 U/L (14-59); AST 22 U/L (15-37); Albumin 4.1 g/dL (3.4-5.0); Alkaline Phosphatase 93 U/L (46-116); Anion Gap 8.7 mmol/L (3-11); BUN 19 mg/dL (7-18); Bilirubin, Total 0.59 mg/dL (0.2-1.0); CO2 28.3 mmol/L (21.0-32.0); CREATININE 1.4 mg/dL (0.55-1.02); Calcium 9.2 mg/dL (8.5-10.1); Chloride 107 mmol/L (98-107); Estimated GFR 39.23 (mL/min/1.73m2); Glucose 85 mg/dL (74-106); Magnesium 2.1 mg/dL (1.8-2.4); PHOSPHORUS 3.9 mg/dL (2.6-4.7); Potassium 4.3 mmol/L (3.5-5.1); Sodium 144 mmol/L (136-145); Total Protein 7.4 g/dL (6.4-8.2)
[2024-08-16 11:20] LABS: Vitamin D 25 Total 53.5 ng/mL (30-100)
[2024-08-16 18:33] LABS: Parathyroid Hormone,Intact 76.1 pg/mL (19.0-88.0)
[2024-08-20 18:02] LABS: Apolipoprotein B, Serum 83 mg/dL (48-124); Beta VLDL Cholesterol Not Detected mg/dL (<15); Beta VLDL Triglycerides Not Detected mg/dL (<15); Cholesterol, Total, CDC 257 mg/dL; Chylomicron Cholesterol Not Detected; Chylomicron Triglycerides Not Detected; HDL Cholesterol, CDC 117 mg/dL (>=50); LDL Cholesterol 120 mg/dL; LDL Triglycerides 26 mg/dL (<=50); Lp(a) Cholesterol <5 mg/dL (<5); LpX Not detected; Triglycerides, CDC 66 mg/dL; VLDL Cholesterol 20 mg/dL (<30); VLDL Triglycerides 20 mg/dL (<120)
== END 2024-08-16 03:33 | disposition home or self-care (01) ==
PROVIDERS: PCP Family Medicine; Visit Provider Family Medicine
DX: N18.31 Chronic kidney disease, stage 3a (principal); E78.00 Pure hypercholesterolemia, unspecified; Z00.00 Encounter for general adult medical examination without abnormal findings
CPT/HCPCS: 80053; 80061; 82306; 82172; 82664; 83735; 83970; 84100; 85025

== ENCOUNTER 2024-09-06 15:36 | Emergency (ER) | payer MEDICARE, BC, SELFPAY ==
[2024-09-06 15:39] VITALS: BP 117/72; PULSE 102; RESP 16; TEMP 36.3; O2SAT 97
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
[2024-09-06] MEDS: Lidocaine 5% Patch 1 PATCH TP (16:58)
[2024-09-06] MEDS: MORPHine IR 15 MG TAB 7.5 MG PO (16:58)
[2024-09-06] MEDS: Acetaminophen 325 MG TAB 650 MG PO (16:59)
--- NOTE | 2024-09-06 17:17 | DI.CT_ITS ---
Exam(s) CT CHEST WO EXAM: CT CHEST WO CLINICAL HISTORY: left rib pain post fall, recent sternal fx TECHNIQUE: Imaging Protocol: Axial computed tomography images with coronal and sagittal reformatted images were created and reviewed. Computer aided detection (CAD) was utilized. CONTRAST MATERIAL: Intravenous: Omnipaque 350 Contrast volume:structured data ml. COMPARISON: CT CT CHEST/ABD/PEL W from 05/06/2024 FINDINGS: Pulmonary parenchyma: No consolidation. No dominant measurable mass. Dependent changes. Mild apical scarring. Smoothly marginated nodule in the left major fissure consistent with intrapulmonary lymph node. No follow-up recommended. Tracheobronchial tree: No bronchiectasis or mucous plugging. Mediastinum and Stacey: No dominant adenopathy or fluid collection. Pleura: No effusion. No pneumothorax. Heart: The heart is not dilated. No coronary artery calcifications are seen. Aorta: Thoracic aorta non-dilated. Mild atherosclerotic changes. Pulmonary arteries: No gross evidence of emboli. Upper abdomen: No acute findings. Bones: The previously noted the sternal fracture has healed without residual deformity. Minimal compression of the superior endplate of T2 is unchanged. Scoliosis. No acute rib fractures are visu alized. Soft tissues: Unremarkable. IMPRESSION: No acute abnormality. Old minimal compression fracture of T2. Old healed sternal fracture. RADIATION DOSE DELIVERED: Total DLP DATA REPOSITORY: All CT scans at this facility are submitted to the National Radiology Data Registry (NRDR) Dose Index Registry (DIR) with the [employer] ([employer]). RADIATION OPTIMIZATION: All CT scans at this facility use at least one of these dose optimization te chniques: automated exposure control; mA and/or kV adjustment per patient size (includes targeted exa ms where dose is matched to clinical indication); or iterative reconstruction.
[2024-09-06] MEDS: MORPHine IR 15 MG TAB, 4 TABS/BTL PO (18:38)
[2024-09-06 18:43] VITALS: BP 99/65; PULSE 84; RESP 18; O2SAT 96
== END 2024-09-06 18:43 | disposition home or self-care (01) ==
PROVIDERS: Emergency Provider Physician Assistant; PCP Family Medicine
DX: S22.32XA Fracture of one rib, left side, initial encounter for closed fracture (principal); N18.30 Chronic kidney disease, stage 3 unspecified; E78.5 Hyperlipidemia, unspecified; W10.8XXA Fall (on) (from) other stairs and steps, initial encounter; Z87.891 Personal history of nicotine dependence
CPT/HCPCS: 71250; 99285; 99284

== ENCOUNTER 2024-10-23 04:36 | Outpatient (CLI) | payer MEDICARE, BC, SELFPAY ==
[2024-10-23 12:48] LABS: Anion Gap 5.5 mmol/L (3-11); BUN 21 mg/dL (7-18); CO2 29.5 mmol/L (21.0-32.0); CREATININE 1.4 mg/dL (0.55-1.02); Calcium 9.4 mg/dL (8.5-10.1); Chloride 107 mmol/L (98-107); Estimated GFR 38.99 (mL/min/1.73m2); Glucose 85 mg/dL (74-106); Potassium 4.2 mmol/L (3.5-5.1); Sodium 142 mmol/L (136-145)
== END 2024-10-23 04:37 | disposition home or self-care (01) ==
PROVIDERS: PCP Family Medicine; Visit Provider Family Medicine
DX: N18.31 Chronic kidney disease, stage 3a (principal)
CPT/HCPCS: 36415; 80048

== ENCOUNTER 2024-11-15 01:08 | Outpatient (CLI) | payer MEDICARE, BC, SELFPAY ==
--- NOTE | 2024-11-15 08:00 | DI.DEXA_ITS ---
Exam(s) XR DEXA BONE DENSITY W/WO JERROD EXAM: XR DEXA BONE DENSITY W/WO JERROD CLINICAL HISTORY: Screening for osteoporosis,postmenopausal disorder,n95.9 TECHNIQUE: COMPARISON: CR XR DEXA BONE DENSITY W/WO JERROD from 08/26/2022 FINDINGS: Lateral Spine Image: Unremarkable. No compression deformities identified. Right hip: Total T-Score: -2.2. This compares to -2.2 on the prior examination. Total Z-Score: -0.3 T- and Z-scores: Findings are consistent with osteopenia. Lumbar Spine: Total T-Score: -3.4. This compares to -3.2 on the prior examination. Total Z-Score: -0.9 T- and Z-scores: Findings are consistent with osteoporosis. Note is also made of osteoporosis in the right forearm with a total T-score of -3.4. This compares t o -3.2 on the prior examination. IMPRESSION: Osteoporosis in the right forearm and lumbar spine.
== END 2024-11-15 01:28 ==
LOC: DI 01:08
PROVIDERS: PCP Family Medicine; Visit Provider Family Medicine
DX: N95.9 Unspecified menopausal and perimenopausal disorder (principal); Z13.820 Encounter for screening for osteoporosis; M81.0 Age-related osteoporosis without current pathological fracture
CPT/HCPCS: 77080

== ENCOUNTER 2025-02-28 10:52 | Outpatient (CLI) | payer MEDICARE, BC, SELFPAY ==
--- NOTE | 2025-02-28 09:21 | DI.RAD_ITS ---
Exam(s) XR HAND RT COMPLETE EXAM: XR HAND RT COMPLETE CLINICAL HISTORY: R hand injury. TECHNIQUE: 2D digital imaging was performed. Three views. COMPARISON: CR,XR XR HAND RT COMPLETE from 05/06/2024 FINDINGS: BONES: No acute fracture is present. No bony destructive lesion is seen. JOINTS: No dislocation present. No significant joint space narrowing again noted at the 2nd through 5th metacarpophalangeal joints. Severe degenerative changes are again noted at the scaphoid trapezium joint. Mild to moderate degenerative changes are present in the interphalangeal joints of the fingers. SOFT TISSUE: Normal. 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 DATA REPOSITORY: RADIATION DOSE DELIVERED:
== END 2025-02-28 10:53 | disposition home or self-care (01) ==
LOC: DIORS 10:53
PROVIDERS: PCP Family Medicine; Referring Provider Family Medicine; Visit Provider Physician Assistant
DX: M79.641 Pain in right hand (principal); S69.91XA Unspecified injury of right wrist, hand and finger(s), initial encounter; W22.09XA Striking against other stationary object, initial encounter
CPT/HCPCS: 99213; 73130

== ENCOUNTER 2025-04-09 01:40 | Outpatient (CLI) | payer MEDICARE, BC, SELFPAY ==
--- NOTE | 2025-04-09 07:15 | DI.US_ITS ---
Exam(s) US RENAL EXAM: US RENAL CLINICAL HISTORY: chronic kidney disease,n18.31. TECHNIQUE: Kaiser scale, color and spectral Doppler were used. COMPARISON: CT CT CHEST/ABD/PEL W from 05/06/2024 FINDINGS: Renal size in cm: Right: 9.8. Left: 9.7. Echogenicity: Normal. Hydronephrosis: No. There are prominent bilateral extrarenal pelves. This can be seen on the CT scan from 05/06/2024. Cyst or mass: There is a 1.4 by 0.7 x 1.0 cm cyst on the right kidney. Nephrolithiasis: No. Other findings: None. Bladder:Normal. Ureteral jets: Right: Visualized and unremarkable. Left: Visualized and unremarkable. Prevoid vol:310 cc Postvoid vol:0 cc Renal color flow: Symmetric and within normal limits. IMPRESSION: 1. No acute abnormality. 2. 1.4 cm simple right renal cysts. No follow-up is recommended. DATA REPOSITORY:
== END 2025-04-09 02:00 ==
PROVIDERS: PCP Family Medicine; Visit Provider Family Medicine
DX: N18.31 Chronic kidney disease, stage 3a (principal)
CPT/HCPCS: 76770

== ENCOUNTER 2025-04-23 02:10 | Outpatient (CLI) | payer MEDICARE, BC, SELFPAY ==
[2025-04-23 11:33] LABS: PROTEIN 17.1 mg/dL; Prot/Crea Ur Ratio 0.12
[2025-04-23 11:51] LABS: ALT 28 U/L (14-59); AST 24 U/L (15-37); Albumin 4.0 g/dL (3.4-5.0); Alkaline Phosphatase 89 U/L (46-116); Anion Gap 7.3 mmol/L (3-11); BUN 20 mg/dL (7-18); Bilirubin, Total 0.5 mg/dL (0.2-1.0); CO2 29.7 mmol/L (21.0-32.0); Calcium 9.1 mg/dL (8.5-10.1); Chloride 103 mmol/L (98-107); Estimated GFR 52.08 (mL/min/1.73m2); Ferritin 40 ng/mL (8-252); Glucose 84 mg/dL (74-106); Potassium 4.0 mmol/L (3.5-5.1); Sodium 140 mmol/L (136-145); Total Protein 7.2 g/dL (6.4-8.2)
[2025-04-23 12:00] LABS: Uric Acid 4.8 mg/dL (2.6-6.0)
[2025-04-25 15:08] LABS: Cystatin C, S 1.37 mg/L
== END 2025-04-23 02:11 | disposition home or self-care (01) ==
LOC: LBO 02:11
PROVIDERS: PCP Family Medicine; Visit Provider Family Medicine
DX: N18.31 Chronic kidney disease, stage 3a (principal); N18.9 Chronic kidney disease, unspecified
CPT/HCPCS: 36415; 80053; 82610; 82565; 82728; 84156; 84550

== ENCOUNTER → 2025-04-25 14:05 | Outpatient (BNVA) | payer MEDICARE, BC, SELFPAY | PROVIDERS: PCP Family Medicine; Referring Provider Family Medicine; Visit Provider Physician Assistant | DX: S69.91XD Unspecified injury of right wrist, hand and finger(s), subsequent encounter (principal); X58.XXXD Exposure to other specified factors, subsequent encounter | CPT/HCPCS: 99213 ==